=== PATIENT | female | born 1945 | race American Indian/Alaskan Native ===

== ENCOUNTER 2018-10-24 11:02 | Inpatient (IN) | payer MEDICARE, MEDICAID ==
[2018-10-24 11:03] VITALS: BMI 31.5
--- NOTE | 2018-10-24 11:19 | C.PDOC ---
History Of Present Illness Patient is a 73 year old female, with a PMHx of hypothyroidism, anemia, stent, 4 knee replacements, end stage renal disease (on dialysis) and 5 arthroscopic surgeries, who was biba for chest pain and syncopy that occurred at approxim ately 8 in the morning, as per her family. Family states that patient had HTN of 155 prior to EMS arrival, which then emely to 201. Patient has also been vomiting and chills. She reports chronic right sided weakness and lower back pain. Denies any urinary/bowel incontinence, fever, shortness of breath, diarrhea. No current chest pain, she notes taking her plavix today. Patient states compliance with her medications, which include Plavix. Allergies to Morphine, Oxycodone, Percocet. No other complaints. PCP is Dr. Artis and Craft Center Director is Dr. Dorman. Time Seen by Provider: 10/24/18 11:18 History Per: Patient, Family History/Exam Limitations: no limitations Onset/Duration Of Symptoms: Hrs Current Symptoms Are (Timing): Still Present Recent travel outside of the [place]: No Additional History Per: Patient, Family Past Medical History - Medical History PMH: Anemia (iron deficiency), CHF, Diabetes, Hiatal Hernia, HTN, Hypercholesterolemia, Peripheral Edema (ble +2), Chronic Kidney Disease, Chronic Pain (R leg) Comment Only: Hypothyroidism (thyroid surgery partial thyroidectomy) Surgical History: No Surg Hx - [facility] Procedures (09/17/17) DILATION OF 1 COR ART WITH DRUG-ELUT INTRA, PERC APPROACH (09/17/17) FLUOROSCOPY OF LEFT HEART USING OTHER CONTRAST (09/17/17) FLUOROSCOPY OF MULTIPLE CORONARY ARTERIES USING OTH CONTRAST (09/17/17) INJECT/INFUSE NEC (09/05/05) INSERTION OF INFUSION DEVICE INTO R ATRIUM, PERC APPROACH (09/17/17) INSERTION OF VAD INTO CHEST SUBCU/FASCIA, PERC APPROACH (09/17/17) MEASURE OF CARDIAC SAMPL & PRESSURE, L HEART, PERC APPROACH (09/17/17) Family History: States: Unknown Family Hx - Social History Hx Tobacco Use: No Hx Alcohol Use: No Hx Substance Use: No Review Of Systems Constitutional: Positive for: Chills. Negative for: Fever, Weakness Eyes: Negative for: Pain, Vision Change ENT: Negative for: Ear Pain, Ear Discharge, Nose Pain Cardiovascular: Positive for: Chest Pain, Edema (right sided pedal edema due to knee replacement surgeries ). Negative for: Palpitations, Orthopnea, Light Headedness Respiratory: Negative for: Cough, Shortness of Breath, SOB with Excertion Gastrointestinal: Negative for: Nausea, Vomiting, Abdominal Pain, Diarrhea, Constipation, Melena, Hematochezia, Hematemesis Genitourinary: Negative for: Dysuria, Frequency, Incontinence, Hematuria, Vaginal Discharge, Vaginal Bleeding Musculoskeletal: Positive for: Back Pain (chronic lower ) Neurological: Negative for: Weakness, Numbness, Change in Speech, Confusion, Seizures, Headache Physical Exam - Physical Exam Appears: Non-toxic, No Acute Distress Skin: Warm, Dry Head: Normacephalic Eye(s): bilateral: Normal Inspection, PERRL, EOMI Oral Mucosa: Moist Tongue: Normal Appearing (5/5 bilateral leg strength ), No Bite Neck: Trachea Midline, Supple, Other (No meningeal signs- negative kernig's and brudzinskis) Chest: Symmetrical Cardiovascular: Rhythm Regular, No Friction Rub Respiratory: Normal Breath Sounds, No Rales, No Rhonchi, No Wheezing Gastrointestinal/Abdominal: Soft, No Tenderness, No Distention Back: Normal Inspection, No CVA Tenderness, No Vertebral Tenderness, No Decreased ROM, No Muscle Spasm Extremity: Normal ROM, No Tenderness, No Pedal Edema, No Swelling Extremity: Bilateral: Normal Color And Temperature Pulses: Left Dorsalis Pedis: Normal, Right Dorsalis Pedis: Normal Neurological/Psych: Oriented x3, Normal Cognition, Normal Cranial Nerves, Normal Motor, Normal Sensation Gait: Steady ED Course And Treatment - Laboratory Results Result Diagrams: 10/24/18 12:22 10/24/18 12:22 ECG: Interpreted By Me, Viewed By Me ECG Rhythm: Sinus Rhythm Interpretation Of ECG: No-STEMI Rate From EC O2 Sat by Pulse Oximetry: 99 (on RA) Pulse Ox Interpretation: Normal - Other Rad CXR X-Ray: Read By Radiologist Interpretation: HISTORY: chills, cp. COMPARISON: Chest x-ray performed 07/10/14. TECHNIQUE: Chest PA and lateral. FINDINGS: Right IJ approach dialysis catheter with tips at the cavoatrial junction/right atrium. LUNGS: Soft tissue attenuation limits evaluation of the lateral left lower lobe; possib le left atelectasis/infiltrate. Correlate clinically. Please note that chest x-ray has limited sensitivity for the detection of pulmonary masses. PLEURA: No significant pleural effusion identified. No definite pneumothorax . CARDIOVASCULAR: Mild cardiomegaly. Atherosclerotic calcifications present. OSSEOUS STRUCTURES: Degenerative changes. VISUALIZED UPPER ABDOMEN: Unremarkable. OTHER FINDINGS: None. IMPRESSION: Right IJ approach dialysis catheter. Soft tissue attenuation limits evaluation of the lateral left lower lobe; possible left atelectasis/infiltrate. Correlate clinically. Cardiomegaly. - CT Scan/US Head Other Rad Studies (CT/US): Read By Radiologist, Radiology Report Reviewed CT/US Interpretation: Date of service: 10/24/2018. PROCEDURE: CT HEAD WITHOUT CONTRAST. HISTORY: syncope. COMPARISON: None available. TECHNIQUE: Axial computed tomography images were obtained through the head/brain without intravenous contrast. Radiation dose: Total exam DLP = 977.31 mGy-cm. This CT exam was performed using one or more of the following dose reduction techniques: Automated exposure control, adjustment of the mA and/or kV according to patient size, and/or use of iterative reconstruction technique. FINDINGS: HEMORRHAGE: No intracranial hemorrhage. BRAIN: No mass effect or edema. The sella appears empty. Mild scattered white matter hypodensities, which are nonspecific, but often seen with chronic microvascular ischemic disease. Please note that MRI with diffusion imaging is more sensitive in the detection of acute ischemic event. VENTRICLES: No hydrocephalus. CALVARIUM: Unremarkable. PARANASAL SINUSES: Unremarkable as visualized. No significant inflammatory changes. MASTOID AIR CELLS: Fluid opacification involving bilateral mastoid air cells. Correlate clinically for mastoiditis. OTHER FINDINGS: None. IMPRESSION: No acute intracranial pathology identified. Fluid/opacification bilateral mastoid air cells; correlate clinically for mastoiditis. Medical Decision Making Medical Decision Makin73 year old female w/ hx of HD T/THr/Sat p/w ams. Plan: * CAT Head * EKG * Bloodwork * CXR * Urinalysis * Flu Swab * Zofran 4 mg IVP Disposition - Disposition Disposition: HOSPITALIZED Disposition Time: 13:28 Condition: GOOD - Clinical Impression Clinical Impression: Pneumonia, Syncope, Chest pain - Scribe Statement The provider has reviewed the documentation as recorded by the Scribe Provider Attestation: Basia Alaniz All medical record entries made by the Scribe were at my direction and personally dictated by me. I have reviewed the chart and agree that the record accurately reflects my personal performance of the history, physical exam, medical decision making, and the department course for this patient. I have also personally directed, reviewed, and agree with the discharge instructions and disposition.
--- NOTE | 2018-10-24 12:14 | CT ---
Date of service: 10/24/2018 PROCEDURE: CT HEAD WITHOUT CONTRAST. HISTORY: syncope COMPARISON: None available. TECHNIQUE: Axial computed tomography images were obtained through the head/brain without intravenous contrast. Radiation dose: Total exam DLP = 977.31 mGy-cm. This CT exam was performed using one or more of the following dose reduction techniques: Automated exposure control, adjustment of the mA and/or kV according to patient size, and/or use of iterative reconstruction technique. FINDINGS: HEMORRHAGE: No intracranial hemorrhage. BRAIN: No mass effect or edema. The sella appears empty. Mild scattered white matter hypodensities, which are nonspecific, but often seen with chronic microvascular ischemic disease. Please note that MRI with diffusion imaging is more sensitive in the detection of acute ischemic event. VENTRICLES: No hydrocephalus. CALVARIUM: Unremarkable. PARANASAL SINUSES: Unremarkable as visualized. No significant inflammatory changes. MASTOID AIR CELLS: Fluid opacification involving bilateral mastoid air cells. Correlate clinically for mastoiditis. OTHER FINDINGS: None. IMPRESSION: No acute intracranial pathology identified. Fluid/opacification bilateral mastoid air cells; correlate clinically for mastoiditis.
--- NOTE | 2018-10-24 12:20 | RAD ---
HISTORY: chills, cp COMPARISON: Chest x-ray performed 07/10/14 TECHNIQUE: Chest PA and lateral FINDINGS: Right IJ approach dialysis catheter with tips at the cavoatrial junction/right atrium. LUNGS: Soft tissue attenuation limits evaluation of the lateral left lower lobe; possible left atelectasis/infiltrate. Correlate clinically. Please note that chest x-ray has limited sensitivity for the detection of pulmonary masses. PLEURA: No significant pleural effusion identified. No definite pneumothorax . CARDIOVASCULAR: Mild cardiomegaly. Atherosclerotic calcifications present. OSSEOUS STRUCTURES: Degenerative changes. VISUALIZED UPPER ABDOMEN: Unremarkable. OTHER FINDINGS: None. IMPRESSION: Right IJ approach dialysis catheter. Soft tissue attenuation limits evaluation of the lateral left lower lobe; possible left atelectasis/infiltrate. Correlate clinically. Cardiomegaly.
[2018-10-24] MEDS ORDERED: Labetalol 25mg/5ml Syringe IVP STA (12:22)
[2018-10-24] MEDS ORDERED: Piperacillin/Tazobact 3.375 GM in Sodium Chloride 100 ML IVPB STA (12:23)
[2018-10-24 12:28] LABS: BASO % 0.4 % (0.0-2.0); EOS % 0.3 % (0.0-4.0); LYMPH # 1.4 K/uL (1.0-4.3); LYMPH % 13.6 % (20.0-40.0); MEAN CELL VOLUME 95.7 fL (81.0-99.0); MEAN CORPUSCULAR HEMOGLOBIN 31.5 pg (27.0-31.0); MEAN CORPUSCULAR HGB CONC 32.9 g/dL (33.0-37.0); MEAN PLATELET VOLUME 8.4 fL (7.2-11.7); MONO # 0.2 K/uL (0.0-0.8); MONO % 2.1 % (0.0-10.0); NEUT # 8.7 K/uL (1.8-7.0); NEUT % 83.6 % (50.0-75.0); RBC 3.5 Mil/uL (3.80-5.20); WHITE BLOOD COUNT 10.4 K/uL (4.8-10.8)
[2018-10-24 12:38] LABS: VENOUS BLOOD GAS BASE EXCESS -1.5 mmol/L (0.0-2.0); VENOUS BLOOD GAS PCO2 44 mmHg (40-60); VENOUS BLOOD GAS PO2 29 mm/Hg (30-55); VENOUS BLOOD PH 7.35 (7.32-7.43)
[2018-10-24] MEDS ORDERED: Piperacillin/Tazobact 3.375 gm 100 ML IVPB ONE (12:38)
[2018-10-24] MEDS ORDERED: Labetalol 5mg/ml (4ml) ONE (12:38)
[2018-10-24 12:48] LABS: ALB/GLOB RATIO 1.3 (1.0-2.1); ALBUMIN 4.5 g/dL (3.5-5.0); ALT/SGPT 13 U/L (9-52); AST/SGOT 27 U/L (14-36); BLOOD UREA NITROGEN 87 mg/dL (7-17); CALCIUM 8.5 mg/dl (8.6-10.4)
[2018-10-24 12:58] LABS: B-TYPE NATRIURETIC PEPTIDE 859 pg/mL (0-900)
[2018-10-24 13:10] LABS: GFR NON-AFRICAN AMERICAN 4
[2018-10-24 13:44] LABS: SQUAMOUS EPITHIAL 4 /hpf (0-5); URINE BACTERIA RARE (<OCC); URINE BILIRUBIN NEGATIVE (NEGATIVE); URINE BLOOD NEGATIVE (NEGATIVE); URINE CLARITY Clear (Clear); URINE COLOR Amber (YELLOW); URINE GLUCOSE (UA) 1+ mg/dL (Normal); URINE LEUKOCYTE ESTERASE NEG Leu/uL (Negative); URINE PROTEIN 2+ mg/dL (NEGATIVE); URINE UROBILINOGEN NORMAL mg/dL (0.2-1.0)
--- NOTE | 2018-10-24 17:10 | CP.PCM.PN ---
Subjective - Date & Time of Evaluation Date of Evaluation: 10/24/18 Time of Evaluation: 16:30 - Subjective Subjective: H&P [facility] # [id number] Objective - Vital Signs/Intake and Output Vital Signs (last 24 hours): Temp Pulse Resp BP Pulse Ox 98 F 76 18 170/86 H 100 10/24/18 11:24 10/24/18 16:03 10/24/18 16:03 10/24/18 16:03 10/24/18 16:03 - Labs Labs: 10/24/18 12:22 10/24/18 12:22
--- NOTE | 2018-10-24 18:15 | CP.PCM.CON ---
History of Present Illness - History of Present Illness History of Present Illness: pt is seen and examined, full consult is dictated #[id number] seen in hd Past Patient History - Infectious Disease Hx of Infectious Diseases: None - Tetanus Immunizations Tetanus Immunization: Unknown - Past Medical History & Family History Past Medical History?: Yes - Past Social History Smoking Status: Never Smoked - CARDIAC Hx Congestive Heart Failure: Yes Hx Hypercholesterolemia: Yes Hx Hypertension: Yes Hx Peripheral Edema: Yes (ble +2) - PULMONARY Hx Respiratory Disorders: No - NEUROLOGICAL Hx Neurological Disorder: Yes - HEENT Hx HEENT Problems: No - RENAL Hx Chronic Kidney Disease: Yes - ENDOCRINE/METABOLIC Hx Hypothyroidism: (thyroid surgery partial thyroidectomy) - HEMATOLOGICAL/ONCOLOGICAL Hx Anemia: Yes (iron deficiency) - INTEGUMENTARY Hx Dermatological Problems: Yes Other/Comment: scar r knee - MUSCULOSKELETAL/RHEUMATOLOGICAL Hx Falls: No - GASTROINTESTINAL Hx Gastrointestinal Disorders: Yes (hiatal hernia) Hx Gastroesophageal Reflux: Yes - GENITOURINARY/GYNECOLOGICAL Hx Genitourinary Disorders: No - PSYCHIATRIC Hx Substance Use: No - SURGICAL HISTORY Hx Orthopedic Surgery: Yes (multiple knee surgeries,SPECIALLY RIGHT KNEE) Hx Thyroidectomy: Yes Other/Comment: pt fell "yrs ago" can't remember how long ago had 5 knee replacements and 5 arthoscopic sx's to r knee, r knee reconstruction with metal plate/cadavor part in nov 2014 and march 2015 - ANESTHESIA Hx Anesthesia Reactions: No Hx Malignant Hyperthermia: No Meds Allergies/Adverse Reactions: Allergies Allergy/AdvReac Type Severity Reaction Status Date / Time acetaminophen [From Percocet] Allergy RASH Verified 02/21/18 14:48 morphine Allergy VOMITING Verified 02/21/18 14:48 oxycodone HCl [From Percocet] Allergy RASH Verified 02/21/18 14:48 Results - Vital Signs Recent Vital Signs: Last Vital Signs Temp 97.8 F 10/24/18 17:10 Pulse 76 10/24/18 17:10 Resp 18 10/24/18 17:10 BP 170/94 H 10/24/18 17:40 Pulse Ox 100 10/24/18 17:10 - Labs Result Diagrams: 10/24/18 12:22 10/24/18 12:22 Labs: Laboratory Results - last 24 hr 10/24/18 10/24/18 10/24/18 11:14 12:22 12:22 WBC 10.4 RBC 3.50 L Hgb 11.0 Hct 33.5 L MCV 95.7 D MCH 31.5 H MCHC 32.9 L RDW 17.0 H Plt Count 274 MPV 8.4 Neut % (Auto) 83.6 H Lymph % (Auto) 13.6 L [place] % (Auto) 2.1 Eos % (Auto) 0.3 Baso % (Auto) 0.4 Neut # (Auto) 8.7 H Lymph # (Auto) 1.4 [place] # (Auto) 0.2 Eos # (Auto) 0.0 Baso # (Auto) 0.0 pO2 VBG pH VBG pCO2 VBG HCO3 VBG Total CO2 VBG O2 Sat (Calc) VBG Base Excess VBG Potassium Glucose Lactate Sodium 138 Potassium 4.9 Chloride 100 Carbon Dioxide 24 Anion Gap 19 BUN 87 H Creatinine 9.2 H* Est GFR ( Amer) 5 Est GFR (Non-Af Amer) 4 POC Glucose (mg/dL) 129 H Random Glucose 131 H D Calcium 8.5 L Total Bilirubin 1.0 AST 27 ALT 13 Alkaline Phosphatase 145 H Troponin I < 0.0120 NT-Pro-B Natriuret Pep 859 Total Protein 7.8 Albumin 4.5 Globulin 3.4 Albumin/Globulin Ratio 1.3 TSH 3rd Generation 8.96 H Venous Blood Potassium Urine Color Urine Clarity Urine pH Ur Specific Tyler Urine Protein Urine Glucose (UA) Urine Ketones Urine Blood Urine Nitrate Urine Bilirubin Urine Urobilinogen Ur Leukocyte Esterase Urine WBC (Auto) Urine RBC (Auto) Ur Squamous Epith Cells Urine Bacteria Influenza Typ A,B (EIA) 10/24/18 10/24/18 10/24/18 12:22 12:30 13:28 WBC RBC Hgb Hct MCV MCH MCHC RDW Plt Count MPV Neut % (Auto) Lymph % (Auto) [place] % (Auto) Eos % (Auto) Baso % (Auto) Neut # (Auto) Lymph # (Auto) [place] # (Auto) Eos # (Auto) Baso # (Auto) pO2 29 L VBG pH 7.35 VBG pCO2 44 VBG HCO3 22.5 VBG Total CO2 25.7 VBG O2 Sat (Calc) 55.4 VBG Base Excess -1.5 L VBG Potassium 4.6 Glucose 121 H Lactate 1.0 Sodium 140.0 Potassium Chloride 106.0 Carbon Dioxide Anion Gap BUN Creatinine Est GFR ( Amer) Est GFR (Non-Af Amer) POC Glucose (mg/dL) Random Glucose Calcium Total Bilirubin AST ALT Alkaline Phosphatase Troponin I NT-Pro-B Natriuret Pep Total Protein Albumin Globulin Albumin/Globulin Ratio TSH 3rd Generation Venous Blood Potassium 4.6 Urine Color Dolores Urine Clarity Clear Urine pH 7.0 Ur Specific Tyler 1.011 Urine Protein 2+ H Urine Glucose (UA) 1+ Urine Ketones Negative Urine Blood Negative Urine Nitrate Negative Urine Bilirubin Negative Urine Urobilinogen Normal Ur Leukocyte Esterase Neg Urine WBC (Auto) 1 Urine RBC (Auto) 4 H Ur Squamous Epith Cells 4 Urine Bacteria Rare Influenza Typ A,B (EIA) Negative for flu a/b
--- NOTE | 2018-10-24 19:19 | PN ---
DATE: 10/24/2018 SUBJECTIVE: I was called for a consult to evaluate the patient for uncontrolled hypertension in the emergency room. Upon my arrival, the patient stated that her gate shear operator, Dr. Dorman explained to the patient and family to convey that to the emergency room physician regarding the blood pressure control. It was discussed with Dr. Tee, the emergency room physician. I did request Dr. Dorman for cardiology consult as per the patient's request. Hugh Soni MD
--- NOTE | 2018-10-25 04:06 | HP ---
CHIEF COMPLAINT: The patient felt very dizzy and weak associated with nausea, vomiting and then episode of watery bowel movement and chest heaviness which happened this morning. HISTORY OF PRESENT ILLNESS: Ms. Shadi Peña is a 73-year-old female with past medical history of hypertension; diabetes mellitus; hyperlipidemia; CAD, status post stent placement; ESRD, on hemodialysis for past one year or so. Has been following up with Dr. Artis as a primary care physician and Dr. Siu as Nephrology and Dr. Almazan as Cardiology and Dr. Dorman as Cardiology. Her history also includes hypothyroidism. Came into the emergency room after the patient felt very weak, dizzy and had an episode of vomiting and loose bowel movement and chest heaviness which happened this morning. All the history was obtained from the patient and the patient's son at bedside. As per the patient, she was getting ready to go to the dialysis center this morning, she started feeling very dizzy, weak and felt nauseous, immediately she had an episode of vomiting and followed by an episode of loose watery bowel movement. She also felt heaviness in the chest at that time. All these symptoms lasted until she came into the emergency room, so she could not go to the hemodialysis center. When I examined, she is still feeling very weak and dizzy. Denies any headache. Denied any severe chest pain, but she claims that she felt heaviness in the chest. Denied any shortness of breath. Denied any abdominal pain, diarrhea. or constipation after that one episode. Denied any urinary complaints. Denied any leg pains or leg cramps. Denied any other neurologic symptoms. She claims she has chronic low back pain and multiple surgeries to her legs with which she always has chronic leg pain, then she has been having these worsening symptoms over the past few days. The patient denies eating any outside food or doing anything unusual than her routine. PAST MEDICAL HISTORY: As described, hypertension; hyperlipidemia; diabetes mellitus; coronary artery disease; status post stent placement; ESRD, on hemodialysis for over a year. PAST SURGICAL HISTORY: She underwent four right knee replacements, coronary stent placement in 2017, Perm-A-Cath placement, and multiple arthroscopic procedures to the left knee. FAMILY HISTORY: Coronary artery disease in her mother who at age 65. PERSONAL HISTORY: She lives alone. 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 Having five children. SOCIAL HISTORY: She denies smoking, alcohol or drug abuse. ALLERGIES: SHE IS ALLERGIC TO MORPHINE, OXYCODONE, ACETAMINOPHEN. MEDICATIONS: Her home medications include Coreg 25 mg b.i.d., Zocor 20 mg p.o. at bedtime, Plavix 75 mg daily, Synthroid 125 mcg daily, Imdur 30 mg daily. REVIEW OF SYSTEMS: As described in history of present illness. All other systems reviewed and were found to be negative. ASSESSMENT AND PLAN: Elderly female with history of hypertension, hyperlipidemia, hypothyroidism, coronary artery disease, status post stent placement, negative for diabetes mellitus, end-stage renal disease and on hemodialysis for about a year ago who has been following up with Dr. Artis as primary care physician, Dr. Siu as associate financial representative and Dr. Dorman as Cardiology. Came into the emergency room, brought in by [facility] after the patient had sudden onset of dizziness and weakness, chest heaviness associated with one episode of vomiting and loose bowel movement which happened this morning while she was getting ready to go to hemodialysis. In emergency department, the patient was found to be having questionable infiltrate on the chest x-ray and as the patient missed her hemodialysis, she is being admitted for further management. 1. Sudden onset of dizziness with chest pain in a patient with multiple risk factors, rule out acute coronary syndrome. 2. Possible gastroenteritis. 3. Generalized weakness. 4. End-stage renal disease with missed hemodialysis. 5. Hypertension. 6. Hyperlipidemia. 7. Hypothyroidism. 8. Coronary artery disease, status post stent placement. Awaiting for arteriovenous fistula placement and for cardiac clearance. PLAN: The patient is being admitted to the hospital telemetry. We will do serial cardiac enzymes and serial EKGs. We will check echocardiogram. We will check carotid Doppler. The patient will obtain cardiology evaluation with Dr. Dorman. The patient received one course of IV antibiotics. We will check CT scan of the chest to rule out any infiltrate. We will start the antibiotics pending on the CT result. The patient missed hemodialysis. We will request a renal consult for continuation of her hemodialysis. Her blood pressures are slightly running high. We will restart all her home medications and for possible this afternoon. I advised the patient to bring all her home medication list for continuation of her home medications. We will repeat labs in a.m. We will add further recommendation as her clinical course progresses. Daxa Styles MD [facility] # [id number]
[2018-10-25] MEDS: Levothyroxine 125 MCG TAB PO SCH (05:47)
--- NOTE | 2018-10-25 06:19 | CON ---
DATE: 10/24/2018 LOCATION: The patient is located in room 562, bed A. REQUESTED BY: Daxa Styles MD REASON FOR RENAL CONSULTATION: End-stage renal disease, continuation of hemodialysis. HISTORY OF PRESENT ILLNESS: Mrs. Shadi Peña is a 73-year-old elderly female with a past medical history significant for hypertension for more than 10 years, diabetes for about 11 years, end-stage renal disease, on hemodialysis since 09/2017, coronary artery disease, status post stent placement in 09/2017, multiple surgeries to the right knee joint, first one total knee replacement in 2002 and then in 2009, also reconstruction of the right patella in 2014, and also rods inside the right leg, status post Perm-A-Cath placement in 09/2017. The patient was admitted with chief complaints of feeling weak and dizziness since morning and unable to go to the dialysis and came to the emergency room for further evaluation. The patient denies any chest pain or palpitation. Denies any fever or cough. Denies any abdominal pain. Denies any nausea, vomiting, diarrhea. The patient claims she feels dizzy if the patient has ultrafiltration more than 2 liters in the dialysis center. The patient is being dialyzed. UF goal is about 2 liters. Denies any complaints during dialysis at this time. PAST MEDICAL HISTORY: Significant for hypertension for more than 10 years, diabetes for more than 10 years, coronary artery disease, status post coronary stent placement, ESRD, on hemodialysis three times a week, on Sunday, , Sunday at [facility], [facility] dialysis unit. PAST SURGICAL HISTORY: Right total knee replacement, multiple surgeries and also thyroid surgery long time ago. ALLERGIES: ALLERGIC TO ACETAMINOPHEN, MORPHINE, OXYCODONE. SOCIAL HISTORY: Denies any smoking, occasional social alcohol use. No drugs. PERSONAL HISTORY: Not and she has five children. FAMILY HISTORY: Both parents and her sister of end-stage renal disease. CURRENT MEDICATIONS: Include, in the hospital, Crestor 20 mg at bedtime, Plavix 75 mg daily, and levothyroxine 125 mcg p.o. daily. REVIEW OF SYSTEMS: Significant for weakness and dizziness. All other review of systems are reviewed and are negative. PHYSICAL EXAMINATION: VITAL SIGNS: As follows: Blood pressure 149/96, pulse 76, respirations 18, temperature 98, saturation 99%. Height 5 feet 5 inches, weight is 180 pounds. GENERAL: Mrs. Shadi Peña is a 73-year-old elderly female, moderately built, moderately nourished, not in acute distress. HEENT: Pupils normal, reactive to light and accommodation. Conjunctivae pink. Sclerae anicteric. Tongue is moist. Trachea is midline. LUNGS: Symmetric on both sides. Bilateral breath sounds present. Clear to auscultation. CARDIOVASCULAR SYSTEM: [place] at the fifth intercostal space, midclavicular line. S1 and S2 audible. No murmur or gallop. ABDOMEN: Normal in appearance. Soft, tympanitic. No guarding. No rigidity. No hepatosplenomegaly. CENTRAL NERVOUS SYSTEM: The patient is alert, awake, oriented x3. Nonfocal neuro examination. Cranial nerves II-XII grossly intact. Sensory and motor system is within normal limits. EXTREMITIES: No cyanosis, no clubbing, no edema. LABORATORY DATA: Include as follows: As of 10/24/2018, WBC 10.4, hemoglobin 11, hematocrit 33.5, platelets 274. ABG: pH 7.35, pCO2 of 44, pO2 of 29 and bicarb is 22.5, saturation 55.4. CMP: Sodium 138, potassium 4.9, chloride 100, CO2 of 24, BUN 87, creatinine 9.2, glucose 121, calcium 8.5. Total bilirubin 1.0, AST 27, ALT 13, alkaline phosphatase 145. Troponin 0.012. ProBNP 859, total protein 7.8, albumin is 4.5 and TSH 8.96. Urinalysis, col[place] color, clear, pH 7, specific gravity 1.011, protein 2+, glucose 1+, ketone negative, blood negative, nitrite negative, bilirubin negative, urobilinogen normal, leukocyte esterase negative, wbc 1, rbc 4. Influenza A and B antibodies negative. Other reports, chest x-ray as of 10/24/2018, impression, soft tissue attenuation limits evaluation of the lateral left lower lobe, possible left atelectasis or infiltrate, correlate clinically cardiomegaly, right internal jugular approach dialysis catheter. CT of the head as of 10/24/2018, no acute intracranial pathology identified, fluid opacification of bilateral mastoid air cells, correlate clinically for mastoiditis. ASSESSMENT: In summary, Mrs. Shadi Peña is a 73-year-old elderly female with a past medical history significant for longstanding hypertension, diabetes, coronary artery disease, status post coronary stent, also herniated disk, multiple surgeries on the right knee joint, status post total knee replacement in 2002, 2009, spacer placement, also status post reconstruction of the right patella in 2014, hemodialysis 3 times a week. The patient was admitted with weakness and dizziness x1 day and missed the hemodialysis. 1. End-stage renal disease. Continue hemodialysis Sunday, , Sunday. 2. Hypertension. Blood pressure is slightly high, continue her current medications and continue to add her current medications, clonidine, amlodipine and metoprolol and continue calcium acetate or PhosLo 1 tablet three times a day and Nephro-Ofelia 1 tablet daily and consider cardiology evaluation with Dr. Herrera, who knows the patient awaiting for the cardiology clearance for the arteriovenous fistula or arteriovenous graft placement. We will follow with you. Thank you for allowing me to participate in your patient's care. Farrah Styles MD
[2018-10-25 07:50] LABS: BASO % 0.5 % (0.0-2.0); EOS # 0.1 K/uL (0.0-0.7); EOS % 1.8 % (0.0-4.0); HEMOGLOBIN 9.8 g/dL (11.0-16.0); LYMPH # 2.1 K/uL (1.0-4.3); LYMPH % 30.2 % (20.0-40.0); MEAN CELL VOLUME 96.1 fL (81.0-99.0); MEAN CORPUSCULAR HEMOGLOBIN 32.3 pg (27.0-31.0); MEAN CORPUSCULAR HGB CONC 33.6 g/dL (33.0-37.0); MEAN PLATELET VOLUME 8.6 fL (7.2-11.7); MONO # 0.5 K/uL (0.0-0.8); MONO % 6.8 % (0.0-10.0); NEUT # 4.2 K/uL (1.8-7.0); NEUT % 60.7 % (50.0-75.0); RBC 3.05 Mil/uL (3.80-5.20); RED CELL DISTRIBUTION WIDTH 17.2 % (11.5-14.5); WHITE BLOOD COUNT 6.9 K/uL (4.8-10.8)
[2018-10-25 08:20] LABS: ALB/GLOB RATIO 1.4 (1.0-2.1); ALBUMIN 4.1 g/dL (3.5-5.0); CALCIUM 8.1 mg/dl (8.6-10.4)
--- NOTE | 2018-10-25 09:27 | CP.PCM.PN ---
Subjective - Date & Time of Evaluation Date of Evaluation: 10/25/18 Time of Evaluation: 09:27 - Subjective Subjective: Progress not dictated #[id number] Objective - Vital Signs/Intake and Output Vital Signs (last 24 hours): Temp Pulse Resp BP Pulse Ox 98.9 F 67 20 163/77 H 100 10/25/18 08:00 10/25/18 08:45 10/25/18 08:00 10/25/18 08:00 10/25/18 08:00 - Medications Medications: Current Medications Clopidogrel Bisulfate (Plavix) 75 mg PO DAILY [facility] Levothyroxine Sodium (Synthroid) 125 mcg PO 0600 [facility] Last Admin: 10/25/18 05:47 Dose: 125 mcg Rosuvastatin Calcium (Crestor) 10 mg PO HS [facility] - Labs Labs: 10/25/18 07:40 10/25/18 07:40
--- NOTE | 2018-10-25 10:38 | CP.PCM.CON ---
History of Present Illness - History of Present Illness History of Present Illness: The patient is a 73 year old woman, with a PMHx of hypothyroidism, anemia, coronary stent in 2017, 4 knee replacements, end stage renal disease (on dialysis) and 5 arthroscopic surgeries, who was getting ready to go to dialysis. Pt says that BP after dialysis is often 85 systolic, and she needs to eat salt and replace volume po. Pt says that she got up, had dressed, Am bp was 150 sysolic (she took it), and she was combing her hair, got dizzy, sat down, stood up, sat down, it did not pass. Patient has also been vomiting and chills, and had vague chest pressure. She called her daughter to help. She was confused, arrived in the ER did not know where she was at first, but gradually her mind cleared. She denies chest pain and syncope. . She reports chronic right sided weakness and lower back pain. Denies any urinary/bowel incontinence, fever, shortness of breath, diarrhea. Patient states compliance with her medications, which include Plavix. Allergies to Morphine, Oxycodone, Percocet. Pt still feels dizzy today. Review of Systems - Review of Systems All systems: reviewed and no additional remarkable complaints except (as above) Past Patient History - Infectious Disease Hx of Infectious Diseases: None - Tetanus Immunizations Tetanus Immunization: Unknown - Past Medical History & Family History Past Medical History?: Yes - Past Social History Smoking Status: Never Smoked - CARDIAC Hx Congestive Heart Failure: Yes Hx Hypercholesterolemia: Yes Hx Hypertension: Yes Hx Peripheral Edema: Yes (ble +2) - PULMONARY Hx Respiratory Disorders: No - NEUROLOGICAL Hx Neurological Disorder: Yes - HEENT Hx HEENT Problems: No - RENAL Hx Chronic Kidney Disease: Yes - ENDOCRINE/METABOLIC Hx Hypothyroidism: (thyroid surgery partial thyroidectomy) - HEMATOLOGICAL/ONCOLOGICAL Hx Anemia: Yes (iron deficiency) - INTEGUMENTARY Hx Dermatological Problems: Yes Other/Comment: scar r knee - MUSCULOSKELETAL/RHEUMATOLOGICAL Hx Falls: No - GASTROINTESTINAL Hx Gastrointestinal Disorders: Yes (hiatal hernia) Hx Gastroesophageal Reflux: Yes - GENITOURINARY/GYNECOLOGICAL Hx Genitourinary Disorders: No - PSYCHIATRIC Hx Substance Use: No - SURGICAL HISTORY Hx Orthopedic Surgery: Yes (multiple knee surgeries,SPECIALLY RIGHT KNEE) Hx Thyroidectomy: Yes Other/Comment: pt fell "yrs ago" can't remember how long ago had 5 knee replacements and 5 arthoscopic sx's to r knee, r knee reconstruction with metal plate/cadavor part in nov 2014 and march 2015 - ANESTHESIA Hx Anesthesia Reactions: No Hx Malignant Hyperthermia: No Meds Allergies/Adverse Reactions: Allergies Allergy/AdvReac Type Severity Reaction Status Date / Time acetaminophen [From Percocet] Allergy RASH Verified 02/21/18 14:48 morphine Allergy VOMITING Verified 02/21/18 14:48 oxycodone HCl [From Percocet] Allergy RASH Verified 02/21/18 14:48 - Medications Medications: Current Medications Clopidogrel Bisulfate (Plavix) 75 mg PO DAILY [facility] Levothyroxine Sodium (Synthroid) 125 mcg PO 0600 [facility] Last Admin: 10/25/18 05:47 Dose: 125 mcg Rosuvastatin Calcium (Crestor) 10 mg PO HS [facility] Physical Exam - Constitutional Appears: Well - Head Exam Head Exam: ATRAUMATIC - Eye Exam Eye Exam: EOMI Pupil Exam: NORMAL ACCOMODATION - ENT Exam ENT Exam: Mucous Membranes Moist - Neck Exam Neck exam: Positive for: Normal Inspection - Respiratory Exam Respiratory Exam: Clear to Auscultation Bilateral, NORMAL BREATHING PATTERN - Cardiovascular Exam Cardiovascular Exam: REGULAR RHYTHM - GI/Abdominal Exam GI & Abdominal Exam: Normal Bowel Sounds - Exam External exam: NORMAL EXTERNAL EXAM - Extremities Exam Extremities exam: Positive for: normal inspection - Back Exam Back exam: NORMAL INSPECTION - Neurological Exam Neurological exam: Alert, Normal Gait, Oriented x3, Reflexes Normal - Psychiatric Exam Psychiatric exam: Normal Affect, Normal Mood - Skin Skin Exam: Normal Color Results - Vital Signs Recent Vital Signs: Last Vital Signs Temp 98.9 F 10/25/18 08:00 Pulse 67 10/25/18 08:45 Resp 20 10/25/18 08:00 BP 163/77 H 10/25/18 08:00 Pulse Ox 100 10/25/18 08:00 - Labs Result Diagrams: 10/25/18 07:40 10/25/18 07:40 Labs: Laboratory Results - last 24 hr 10/24/18 10/24/18 10/24/18 11:14 12:22 12:22 WBC 10.4 RBC 3.50 L Hgb 11.0 Hct 33.5 L MCV 95.7 D MCH 31.5 H MCHC 32.9 L RDW 17.0 H Plt Count 274 MPV 8.4 Neut % (Auto) 83.6 H Lymph % (Auto) 13.6 L [place] % (Auto) 2.1 Eos % (Auto) 0.3 Baso % (Auto) 0.4 Neut # (Auto) 8.7 H Lymph # (Auto) 1.4 [place] # (Auto) 0.2 Eos # (Auto) 0.0 Baso # (Auto) 0.0 pO2 VBG pH VBG pCO2 VBG HCO3 VBG Total CO2 VBG O2 Sat (Calc) VBG Base Excess VBG Potassium Glucose Lactate Sodium 138 Potassium 4.9 Chloride 100 Carbon Dioxide 24 Anion Gap 19 BUN 87 H Creatinine 9.2 H* Est GFR ( Amer) 5 Est GFR (Non-Af Amer) 4 POC Glucose (mg/dL) 129 H Random Glucose 131 H D Hemoglobin A1c Calcium 8.5 L Phosphorus Magnesium Total Bilirubin 1.0 AST 27 ALT 13 Alkaline Phosphatase 145 H Troponin I < 0.0120 NT-Pro-B Natriuret Pep 859 Total Protein 7.8 Albumin 4.5 Globulin 3.4 Albumin/Globulin Ratio 1.3 Triglycerides Cholesterol LDL Cholesterol Direct HDL Cholesterol TSH 3rd Generation 8.96 H Venous Blood Potassium Urine Color Urine Clarity Urine pH Ur Specific [place] Urine Protein Urine Glucose (UA) Urine Ketones Urine Blood Urine Nitrate Urine Bilirubin Urine Urobilinogen Ur Leukocyte Esterase Urine WBC (Auto) Urine RBC (Auto) Ur Squamous Epith Cells Urine Bacteria Influenza Typ A,B (EIA) 10/24/18 10/24/18 10/24/18 12:22 12:30 13:28 WBC RBC Hgb Hct MCV MCH MCHC RDW Plt Count MPV Neut % (Auto) Lymph % (Auto) [place] % (Auto) Eos % (Auto) Baso % (Auto) Neut # (Auto) Lymph # (Auto) [place] # (Auto) Eos # (Auto) Baso # (Auto) pO2 29 L VBG pH 7.35 VBG pCO2 44 VBG HCO3 22.5 VBG Total CO2 25.7 VBG O2 Sat (Calc) 55.4 VBG Base Excess -1.5 L VBG Potassium 4.6 Glucose 121 H Lactate 1.0 Sodium 140.0 Potassium Chloride 106.0 Carbon Dioxide Anion Gap BUN Creatinine Est GFR ( Amer) Est GFR (Non-Af Amer) POC Glucose (mg/dL) Random Glucose Hemoglobin A1c Calcium Phosphorus Magnesium Total Bilirubin AST ALT Alkaline Phosphatase Troponin I NT-Pro-B Natriuret Pep Total Protein Albumin Globulin Albumin/Globulin Ratio Triglycerides Cholesterol LDL Cholesterol Direct HDL Cholesterol TSH 3rd Generation Venous Blood Potassium 4.6 Urine Color [place] Urine Clarity Clear Urine pH 7.0 Ur Specific [place] 1.011 Urine Protein 2+ H Urine Glucose (UA) 1+ Urine Ketones Negative Urine Blood Negative Urine Nitrate Negative Urine Bilirubin Negative Urine Urobilinogen Normal Ur Leukocyte Esterase Neg Urine WBC (Auto) 1 Urine RBC (Auto) 4 H Ur Squamous Epith Cells 4 Urine Bacteria Rare Influenza Typ A,B (EIA) Negative for flu a/b 10/24/18 10/25/18 10/25/18 19:08 01:28 06:18 WBC RBC Hgb Hct MCV MCH MCHC RDW Plt Count MPV Neut % (Auto) Lymph % (Auto) [place] % (Auto) Eos % (Auto) Baso % (Auto) Neut # (Auto) Lymph # (Auto) [place] # (Auto) Eos # (Auto) Baso # (Auto) pO2 VBG pH VBG pCO2 VBG HCO3 VBG Total CO2 VBG O2 Sat (Calc) VBG Base Excess VBG Potassium Glucose Lactate Sodium Potassium Chloride Carbon Dioxide Anion Gap BUN Creatinine Est GFR ( Amer) Est GFR (Non-Af Amer) POC Glucose (mg/dL) 104 111 H Random Glucose Hemoglobin A1c Calcium Phosphorus Magnesium Total Bilirubin AST ALT Alkaline Phosphatase Troponin I < 0.0120 NT-Pro-B Natriuret Pep Total Protein Albumin Globulin Albumin/Globulin Ratio Triglycerides Cholesterol LDL Cholesterol Direct HDL Cholesterol TSH 3rd Generation Venous Blood Potassium Urine Color Urine Clarity Urine pH Ur Specific [place] Urine Protein Urine Glucose (UA) Urine Ketones Urine Blood Urine Nitrate Urine Bilirubin Urine Urobilinogen Ur Leukocyte Esterase Urine WBC (Auto) Urine RBC (Auto) Ur Squamous Epith Cells Urine Bacteria Influenza Typ A,B (EIA) 10/25/18 10/25/18 10/25/18 07:40 07:40 07:40 WBC 6.9 RBC 3.05 L Hgb 9.8 L Hct 29.3 L MCV 96.1 MCH 32.3 H MCHC 33.6 RDW 17.2 H Plt Count 243 MPV 8.6 Neut % (Auto) 60.7 Lymph % (Auto) 30.2 [place] % (Auto) 6.8 Eos % (Auto) 1.8 Baso % (Auto) 0.5 Neut # (Auto) 4.2 Lymph # (Auto) 2.1 [place] # (Auto) 0.5 Eos # (Auto) 0.1 Baso # (Auto) 0.0 pO2 VBG pH VBG pCO2 VBG HCO3 VBG Total CO2 VBG O2 Sat (Calc) VBG Base Excess VBG Potassium Glucose Lactate Sodium 137 Potassium 4.2 Chloride 99 Carbon Dioxide 27 Anion Gap 16 BUN 46 H Creatinine 6.4 H Est GFR ( Amer) 8 Est GFR (Non-Af Amer) 6 POC Glucose (mg/dL) Random Glucose 110 H Hemoglobin A1c 5.5 Calcium 8.1 L Phosphorus 5.4 H Magnesium 2.1 Total Bilirubin 0.8 AST 24 ALT 15 Alkaline Phosphatase 120 Troponin I NT-Pro-B Natriuret Pep Total Protein 7.0 Albumin 4.1 Globulin 3.0 Albumin/Globulin Ratio 1.4 Triglycerides 116 Cholesterol 174 LDL Cholesterol Direct 99 HDL Cholesterol 36 TSH 3rd Generation 7.62 H Venous Blood Potassium Urine Color Urine Clarity Urine pH Ur Specific [place] Urine Protein Urine Glucose (UA) Urine Ketones Urine Blood Urine Nitrate Urine Bilirubin Urine Urobilinogen Ur Leukocyte Esterase Urine WBC (Auto) Urine RBC (Auto) Ur Squamous Epith Cells Urine Bacteria Influenza Typ A,B (EIA) - EKG Data EKG Interpreted by: Myself EKG shows normal: Sinus rhythm Rate: Normal (normal ecg) Assessment & Plan - Assessment and Plan (Free Text) Assessment: 1. Pt reports nausea, vomiting, confusion, vague chest discomfort, dizziness. Initial w/u revealed a normal ECG and normal tni. Second TNi pending. Echo has been ordered. So far, no evidence of acute coronary syndrome. Will order BP orthostatics, and review echo. Based on results, additional recommendations will be made. 2. BP is high: will order beta alessandro
[2018-10-25 10:53] LABS: CK-MB 0.76 ng/mL (0.0-3.38)
--- NOTE | 2018-10-25 12:39 | CT ---
Date of service: 10/25/2018 PROCEDURE: CT Chest without contrast HISTORY: r/o infiltrate COMPARISON: Not available TECHNIQUE: Contiguous axial images were obtained through the chest without intravenous contrast enhancement. Sagittal and coronal reconstructions were performed. Radiation dose (DLP): 787.79 mGy-cm. This CT exam was performed using one or more of the following dose reduction techniques: Automated exposure control, adjustment of the mA and/or kV according to patient size, and/or use of iterative reconstruction technique. FINDINGS: LUNGS: Minimal subsegmental atelectasis left lower lobe. No infiltrate. There is a 6 mm perifissural nodule along the minor fissure, likely an intrapulmonary lymph node. Follow-up noncontrast chest CT examination in 6-12 months. No other pulmonary mass is identified.. MEDIASTINUM: Unremarkable thoracic aorta. No aneurysm. Normal size heart. Minimal pericardial effusion. Small hiatal hernia. Right tunneled central venous dialysis catheter. Main pulmonary artery unremarkable. No vascular congestion. No lymphadenopathy. There is atherosclerotic calcification of the thoracic aorta. PLEURA: No pleural fluid. No pneumothorax. BONES: No fracture. No destructive lesion. UPPER ABDOMEN: Grossly unremarkable. OTHER FINDINGS: None. IMPRESSION: Small hiatal hernia. Incidental 6 mm perifissural nodule along the minor fissure. Recommend follow-up noncontrast chest CT in 6-12 months ago per no other acute abnormality.
--- NOTE | 2018-10-25 15:02 | VASCLAB ---
Date of service: 10/25/2018 PROCEDURE: Lower Extremity Venous Duplex Exam. HISTORY: Leg swelling PRIORS: None. TECHNIQUE: Bilateral common femoral, femoral, popliteal and posterior tibial, peroneal and great saphenous veins were evaluated. Flow was assessed with color Doppler, compressibility, assessment of phasic flow and augmentation response. Report prepared by Leonel Moreau, KIRK, RVT FINDINGS: RIGHT: 1. Common Femoral Vein: 1.1. Compressibility - Fully compressible: Thrombus - None : Flow - Phasic: Augmentation -Normal: Reflux - None. 2. Femoral Vein: 2.1. Compressibility - Fully compressible: Thrombus - None : Flow - Phasic: Augmentation -Normal: Reflux - None. 3. Popliteal Vein: 3.1. Compressibility - Fully compressible: Thrombus - None : Flow - Phasic: Augmentation -Normal: Reflux - None. 4. Posterior Tibial Vein: 4.1. Compressibility - Fully compressible: Thrombus - None: Flow - Phasic: Augmentation -Normal: Reflux - None. 5. Peroneal Vein: 5.1. Compressibility - Fully compressible: Thrombus - None: Flow - Phasic: Augmentation -Normal: Reflux - None. 6. Great Saphenous Vein: 6.1. Compressibility - Fully compressible: Thrombus - None: Flow - Phasic: Augmentation - Normal: Reflux - None. LEFT: 1. Common Femoral Vein: 1.1. Compressibility - Fully compressible: Thrombus - None: Flow - Phasic: Augmentation -Normal: Reflux - None. 2. Femoral Vein: 2.1. Compressibility - Fully compressible: Thrombus - None: Flow - Phasic: Augmentation -Normal: Reflux - None. 3. Popliteal Vein: 3.1. Compressibility - Fully compressible: Thrombus - None : Flow - Phasic: Augmentation -Normal: Reflux - None. 4. Posterior Tibial Vein: 4.1. Compressibility - Fully compressible: Thrombus - None: Flow - Phasic: Augmentation -Normal: Reflux - None. 5. Peroneal Vein: 5.1. Compressibility - Fully compressible: Thrombus - None: Flow - Phasic: Augmentation -Normal: Reflux - None. 6. Great Saphenous Vein: 6.1. Compressibility - Fully compressible: Thrombus - None: Flow - Phasic: Augmentation - Normal: Reflux - None. OTHER FINDINGS: Right: Technically limited on the right due to patient intolerance to compressions. Left: None significant. IMPRESSION: Right: No evidence of deep or superficial vein thrombosis of the right lower extremity. Normal valve function noted of the right side. Left: No evidence of deep or superficial vein thrombosis of the left lower extremity. Normal valve function noted of the left side.
--- NOTE | 2018-10-25 19:16 | CP.PCM.PN ---
Subjective - Date & Time of Evaluation Date of Evaluation: 10/25/18 Time of Evaluation: 19:15 - Subjective Subjective: pt is seen and examined, follow up consult is dictated #[id number] hd in am Objective - Vital Signs/Intake and Output Vital Signs (last 24 hours): Temp Pulse Resp BP Pulse Ox 98.9 F 61 20 177/104 H 100 10/25/18 08:00 10/25/18 16:18 10/25/18 08:00 10/25/18 11:50 10/25/18 08:00 - Medications Medications: Current Medications Clopidogrel Bisulfate (Plavix) 75 mg PO DAILY [facility] Last Admin: 10/25/18 11:51 Dose: 75 mg Levothyroxine Sodium (Synthroid) 125 mcg PO 0600 [facility] Last Admin: 10/25/18 05:47 Dose: 125 mcg Metoprolol Tartrate (Lopressor) 25 mg PO BID [facility] Last Admin: 10/25/18 11:50 Dose: 25 mg Rosuvastatin Calcium (Crestor) 10 mg PO [facility] - Labs Labs: 10/25/18 07:40 10/25/18 07:40
--- NOTE | 2018-10-26 00:05 | PN ---
DATE: 10/25/2018 SUBJECTIVE: The patient was seen and examined at bedside. The patient is still complaining of dizziness without any nausea or vomiting, without any neuro deficits. The patient claims that she takes dizziness medication meclizine intermittently. Now, the patient claims that yesterday, she, kind of, blanked out from the time she got into the ambulance and she did not know how she got here to the hospital, which was also stated to Dr. Dorman this morning. She could not recall what happened during that course of the time. This morning, denies any nausea or vomiting or any bowel movement. Denies any other neuro deficits. Other than dizziness, she has been feeling fairly normal. PHYSICAL EXAMINATION: GENERAL: Elderly female, lying in bed, in no acute distress. VITAL SIGNS: Blood pressure 174/86, not orthostatic; pulse 61; respirations 20; temperature 98.4 degrees Fahrenheit; O2 sat is 98% on room air. HEENT: Pupils equal, round, reacting to light and accommodation. Extraocular muscles intact. No icterus. No pallor. No oral thrush. No pharyngeal congestion. NECK: Supple. No JVD. LUNGS: Bilateral vesicular breath sounds. No wheezing. No rhonchi. CARDIOVASCULAR SYSTEM: S1, S2 present, regular. ABDOMEN: Soft, nontender. Bowel sounds present. No guarding, no rigidity, no rebound tenderness noted. CENTRAL NERVOUS SYSTEM: Alert, awake, and oriented x3. No focal deficits noted. EXTREMITIES: No edema. Palpable peripheral pulses. MEDICATIONS: Include Plavix 75 mg daily, Synthroid 125 mcg p.o. daily, meclizine 25 mg p.o. once, Lopressor 25 mg p.o. b.i.d., and Crestor 10 mg p.o. at bedtime. LABORATORY DATA: Labs from this morning: WBC 6.9, hemoglobin 9.8, hematocrit 29.3, platelets 243. Sodium 137, potassium 4.2, chloride 99, bicarbonate 27, BUN 46, creatinine 6.4, glucose 111, hemoglobin A1c 5.5, calcium 8.1, phosphorus 5.4, magnesium 2.1, total bilirubin 0.8, AST 24, ALT 15, alkaline phosphatase 120. Cardiac enzymes x2 negative. Total protein 7, albumin 4.1. Triglycerides 116, cholesterol 174, LDL 99, HDL 36. TSH 7.62. ASSESSMENT AND PLAN: An elderly female with history of hypertension, hyperlipidemia, coronary artery disease, status post stent placement, end-stage renal disease, on hemodialysis, admitted for dizziness, near syncope, generalized weakness, and chest pain. The patient now claims that she was not able to recall what happened from the time she got into the ambulance until she came into the emergency room, rule out syncope. The patient received hemodialysis yesterday. The patient is not orthostatic. We will continue with her current medications. We will start meclizine as needed. Check carotid Doppler. Echocardiogram results are pending. We will obtain neurology evaluation. We will continue with the deep venous thrombosis and gastrointestinal prophylaxis. Lower extremity Dopplers negative for deep venous thrombosis. Daxa Styles MD
--- NOTE | 2018-10-26 02:37 | PN ---
DATE: 10/25/2018 FOLLOWUP RENAL CONSULTATION LOCATION: The patient is located in room 562, bed A. REQUESTED BY: Daxa Styles MD REASON FOR FOLLOWUP: End-stage renal disease, continuation of hemodialysis. SUBJECTIVE: Mrs. Shdai Peña is a 73-year-old elderly female with a past medical history significant for longstanding hypertension, diabetes, nephrotic-range proteinuria, status post multiple surgeries for the right knee and metallic rods in the leg, coronary artery disease, status post stent placement about a year ago, end-stage renal disease, on hemodialysis since 09/2017 three times a week who was admitted with chief complaints of feeling dizzy, lightheaded, multiple vomiting and also passed out and also incontinence of bowel and also urine. As per the patient's family, the patient does not remember what happened until she was placed on the stretcher by the EMS. The patient is not in acute distress. Denies any chest pain or palpitation. Denies any fever or cough. Denies any abdominal pain, nausea, vomiting, or diarrhea. The patient was able to ambulate with the patient's family to the bathroom as per the patient today. Occasional dizziness. PHYSICAL EXAMINATION: VITAL SIGNS: As follows: Blood pressure 148/82, pulse 69, respirations about 20, and temperature 98.9. Height 5 feet 5 inches. Weight is 180 pounds. GENERAL: Mrs. Shadi Peña is a 73-year-old elderly female, moderately built, moderately nourished, not in distress. HEENT: Pupils are normal and reactive to light and accommodation. Conjunctivae pink. Sclerae anicteric. Tongue is moist and trachea is midline. LUNGS: Symmetric on both sides. Bilateral breath sounds present. Clear to auscultation. CARDIOVASCULAR SYSTEM: [place] at the fifth intercostal space, midclavicular line. S1 and S2 audible. No murmur or gallop. ABDOMEN: Normal in appearance, soft, tympanitic. No guarding. No rigidity. No hepatosplenomegaly. CENTRAL NERVOUS SYSTEM: The patient is alert, awake and oriented x3. Nonfocal neuro examination. Cranial nerves II through XII grossly intact. Sensory and motor system is within normal limits. EXTREMITIES: No cyanosis, no clubbing, no edema. The patient has a scar on the knee. CURRENT MEDICATIONS: Include as follows: Crestor 10 mg p.o. at bedtime, metoprolol 25 mg p.o. b.i.d., Plavix 75 mg p.o. daily, and Synthroid 125 mcg p.o. daily. LABORATORY DATA: As of 10/25/2018: WBC 6.9, hemoglobin 9.8, hematocrit is 29.3, platelets 243. Sodium 137, potassium 4.2, chloride 99, CO2 of 27, BUN 46, creatinine 6.4, glucose 110, hemoglobin A1c of 5.5, calcium 8.1, phosphorus 5.4, magnesium 2.1. Total bili 0.8, AST 24, ALT 15, alkaline phos of 120. CPK 88. Troponin 0.012 and 0.012. Total protein 7, albumin 4.1. Cholesterol 174, triglycerides 116, LDL 99, HDL 36. TSH 7.62. ASSESSMENT AND PLAN: In summary, Mrs. Shadi Peña is a 73-year-old elderly female with a history of hypertension, diabetes, status post thyroid surgery, hypothyroidism, hyperlipidemia, end-stage renal disease, coronary artery disease, status post stent placement, on hemodialysis since 09/2017 who was admitted with dizziness, nausea, vomiting, and incontinence of bowel and urine. 1. End-stage renal disease. Continue hemodialysis three times a week on Sunday, and Sunday. 2. Hypertension. Blood pressure is stable. Titrate medication metoprolol slowly as per the Cardiology. 3. Anemia secondary to renal failure. We will add Epogen during dialysis. 4. Hyperphosphatemia secondary to hyperparathyroidism, most likely. We will add Renvela 800 mg by mouth t.i.d. and also Nephrocaps one tablet by mouth daily. We will follow with you. Thank you for allowing me to participate in your patient's care. Farrah Styles MD
[2018-10-26] MEDS: Levothyroxine 125 MCG TAB PO SCH (06:08)
[2018-10-26 07:18] LABS: BASO % 0.4 % (0.0-2.0); EOS # 0.1 K/uL (0.0-0.7); EOS % 2.2 % (0.0-4.0); HEMOGLOBIN 9.9 g/dL (11.0-16.0); LYMPH # 2.3 K/uL (1.0-4.3); LYMPH % 35.5 % (20.0-40.0); MEAN CELL VOLUME 96.3 fL (81.0-99.0); MEAN CORPUSCULAR HEMOGLOBIN 32.3 pg (27.0-31.0); MEAN CORPUSCULAR HGB CONC 33.5 g/dL (33.0-37.0); MEAN PLATELET VOLUME 8.8 fL (7.2-11.7); MONO # 0.4 K/uL (0.0-0.8); MONO % 6.3 % (0.0-10.0); NEUT # 3.6 K/uL (1.8-7.0); NEUT % 55.6 % (50.0-75.0); RBC 3.08 Mil/uL (3.80-5.20); RED CELL DISTRIBUTION WIDTH 16.4 % (11.5-14.5); WHITE BLOOD COUNT 6.4 K/uL (4.8-10.8)
[2018-10-26 07:39] LABS: ALB/GLOB RATIO 1.3 (1.0-2.1); CALCIUM 8.3 mg/dl (8.6-10.4)
--- NOTE | 2018-10-26 10:53 | CP.PCM.PN ---
Subjective - Date & Time of Evaluation Date of Evaluation: 10/26/18 Time of Evaluation: 10:53 - Subjective Subjective: Progress note dictated # [id number] Objective - Vital Signs/Intake and Output Vital Signs (last 24 hours): Temp Pulse Resp BP Pulse Ox 97.9 F 60 20 149/83 97 10/26/18 07:58 10/26/18 07:58 10/26/18 07:58 10/26/18 07:58 10/25/18 23:38 Intake and Output: 10/26/18 10/26/18 06:59 18:59 Intake Total 320 Balance 320 - Medications Medications: Current Medications Clopidogrel Bisulfate (Plavix) 75 mg PO DAILY [facility] Last Admin: 10/26/18 10:36 Dose: 75 mg Levothyroxine Sodium (Synthroid) 125 mcg PO 0600 [facility] Last Admin: 10/26/18 06:08 Dose: 125 mcg Metoprolol Tartrate (Lopressor) 25 mg PO BID [facility] Last Admin: 10/26/18 10:36 Dose: Not Given Rosuvastatin Calcium (Crestor) 10 mg PO HS [facility] Last Admin: 10/25/18 21:34 Dose: 10 mg - Labs Labs: 10/26/18 07:02 10/26/18 07:02
--- NOTE | 2018-10-26 13:53 | CP.PCM.PN ---
Subjective - Date & Time of Evaluation Date of Evaluation: 10/26/18 Time of Evaluation: 13:52 - Subjective Subjective: pt is seen and examined,follow up consult is dictated #[id number] for hd today Objective - Vital Signs/Intake and Output Vital Signs (last 24 hours): Temp Pulse Resp BP Pulse Ox 97.9 F 60 20 149/83 97 10/26/18 07:58 10/26/18 07:58 10/26/18 07:58 10/26/18 07:58 10/25/18 23:38 Intake and Output: 10/26/18 10/26/18 06:59 18:59 Intake Total 320 Balance 320 - Medications Medications: Current Medications Clopidogrel Bisulfate (Plavix) 75 mg PO DAILY [facility] Last Admin: 10/26/18 10:36 Dose: 75 mg Levothyroxine Sodium (Synthroid) 125 mcg PO 0600 [facility] Last Admin: 10/26/18 06:08 Dose: 125 mcg Metoprolol Tartrate (Lopressor) 25 mg PO BID [facility] Last Admin: 10/26/18 10:36 Dose: Not Given Rosuvastatin Calcium (Crestor) 10 mg PO [facility] Last Admin: 10/25/18 21:34 Dose: 10 mg - Labs Labs: 10/26/18 07:02 10/26/18 07:02
--- NOTE | 2018-10-26 15:33 | CARD ---
APPROVED REPORT Date of service: 10/25/2018 EXAM: Two-dimensional and M-mode echocardiogram with Doppler and color Doppler. Other Information Quality : GoodRhythm : INDICATION Abnormal EKG/Arrhythmia Peripheral Edema Pleural Effusion Chest Pain RISK FACTORS Hypertension Diabetes 2D DIMENSIONS IVSd1.0 (0.7-1.1cm)LVDd5.2 (3.9-5.9cm) PWd1.1 (0.7-1.1cm)LA Llgpjl51 (18-58mL) LVDs2.2 (2.5-4.0cm)FS (%) 56.8 % LVEF (%)86.8 (>50%)LVEF (Mccray's)80 % IVC0.00 cm M-Mode DIMENSIONS RVDd1.82 (2.1-3.2cm)Left Atrium (MM)4.67 (2.5-4.0cm) IVSd1.00 (0.7-1.1cm)Aortic Root3.13 (2.2-3.7cm) LVDd5.51 (4.0-5.6cm)Aortic Cusp Exc.2.11 (1.5-2.0cm) PWd1.39 (0.7-1.1cm)FS (%) 56 % LVDs2.43 (2.0-3.8cm)LVEF (%)86 (>50%) Mitral Valve MV E Jfqkjtxy34.2cm/sMV A Ejdbrsyq178.5cm/sE/A ratio0.9 TDI Lateral E' Peak V6.16cm/sMedial E' Peak V3.58cm/sE/Lateral E'15.0 E/Medial E'25.8 Tricuspid Valve TR Peak Sddtuoyk018aj/sTR Peak Gr.15jsAlARAR67peCt LEFT VENTRICLE The left ventricle is normal size. There is normal left ventricular wall thickness. The left ventricular function is normal. The left ventricular ejection fraction is within the normal range. No regional wall motion abnormalities noted. Indeterminate No left ventricle thrombus noted on this study. There is no ventricular septal defect visualized. There is no left ventricular aneurysm. There is no mass noted in the left ventricle. RIGHT VENTRICLE The right ventricle is normal size. There is normal right ventricular wall thickness. The right ventricular systolic function is normal. ATRIA The left atrium is mildly dilated. The right atrium size is normal. The interatrial septum is intact with no evidence for an atrial septal defect. AORTIC VALVE The aortic valve is normal in structure and function. No aortic regurgitation is present. There is no aortic valvular stenosis. There is no aortic valvular vegetation. MITRAL VALVE The mitral valve is normal in structure and function. There is no evidence of mitral valve prolapse. There is no mitral valve stenosis. There is no mitral valve regurgitation noted. TRICUSPID VALVE The tricuspid valve is normal in structure and function. There is mild tricuspid regurgitation. Right ventricular systolic pressure is estimated at less than 30 mmHg. There is no tricuspid valve prolapse or vegetation. There is no tricuspid valve stenosis. PULMONIC VALVE The pulmonary valve is normal in structure and function. There is no pulmonic valvular regurgitation. There is no pulmonic valvular stenosis. GREAT VESSELS The aortic root is normal in size. The ascending aorta is normal in size. The pulmonary artery is normal. The IVC is normal in size and collapses >50% with inspiration. PERICARDIAL EFFUSION The pericardium appears normal. There is no pleural effusion. <Conclusion> The left ventricular function is normal. The left ventricular ejection fraction is within the normal range. No regional wall motion abnormalities noted. The left atrium is mildly dilated.
--- NOTE | 2018-10-27 00:22 | PN ---
DATE: 10/26/2018 SUBJECTIVE: The patient was seen and examined at bedside. The patient is feeling better today, less dizziness. Denies any other new complaints. PHYSICAL EXAMINATION GENERAL: Elderly female, lying in bed, in no acute distress. VITAL SIGNS: Blood pressure 146/84, pulse 67, respirations 20, temperature 97.9 degrees Fahrenheit, O2 sat 93% on room air. HEENT: Pupils are equal, round and reacting to light and accommodation. Extraocular muscles intact. No icterus. No pallor. No oral thrush. No pharyngeal congestion. NECK: Supple. No JVD. LUNGS: Bilateral vesicular breath sounds. No wheezing. No rhonchi. CARDIOVASCULAR SYSTEM: S1 and S2 present, regular. ABDOMEN: Soft, nontender. Bowel sounds present. No guarding. No rigidity. No rebound tenderness noted. CENTRAL NERVOUS SYSTEM: Alert, awake, oriented x3. No focal deficits noted. EXTREMITIES: No edema. Palpable peripheral pulses. MEDICATIONS: Include Plavix 75 mg daily, Synthroid 125 mcg daily, metoprolol 25 mg p.o. b.i.d., Crestor 10 mg p.o. at bedtime. LABORATORY DATA: Labs from this morning: WBC 6.4, hemoglobin 9.9, hematocrit 29.7, platelets 227. Sodium 138, potassium 4.5, chloride 98, bicarb 27, BUN 59, creatinine 7.9, glucose 104. Calcium 8.3, total bilirubin 0.6, AST 21, ALT 17, alkaline phosphatase 119, total protein 7.1, albumin 4. Echocardiogram consistent with left ventricular function normal, EF is within normal range. No regional wall motion abnormalities. Left atrium is mildly dilated. ASSESSMENT AND PLAN: Elderly female with a history of hypertension; hypothyroidism; hyperlipidemia; diabetes mellitus; coronary artery disease, status post stent placement; end-stage renal disease, on hemodialysis; admitted for dizziness, questionable near-syncope versus syncope, generalized weakness and vertigo history. The patient received one dose of meclizine yesterday. The patient's symptoms are slightly better than yesterday for hemodialysis today. Continue with other current medications. We will follow up with Cardiology. If Cardiology clears the patient and seen by Neurology, we will plan discharging the patient home. Daxa Styles MD [facility] # [id number]
[2018-10-27] MEDS: Levothyroxine 125 MCG TAB PO SCH (05:38)
[2018-10-27 08:43] LABS: BASO % 0.3 % (0.0-2.0); EOS # 0.2 K/uL (0.0-0.7); EOS % 2.1 % (0.0-4.0); HEMOGLOBIN 10.5 g/dL (11.0-16.0); LYMPH # 2.5 K/uL (1.0-4.3); LYMPH % 33.9 % (20.0-40.0); MEAN CELL VOLUME 95.8 fL (81.0-99.0); MEAN CORPUSCULAR HEMOGLOBIN 32.8 pg (27.0-31.0); MEAN CORPUSCULAR HGB CONC 34.3 g/dL (33.0-37.0); MEAN PLATELET VOLUME 8.9 fL (7.2-11.7); MONO # 0.5 K/uL (0.0-0.8); MONO % 6.2 % (0.0-10.0); NEUT # 4.2 K/uL (1.8-7.0); NEUT % 57.5 % (50.0-75.0); RBC 3.19 Mil/uL (3.80-5.20); RED CELL DISTRIBUTION WIDTH 16.1 % (11.5-14.5); WHITE BLOOD COUNT 7.3 K/uL (4.8-10.8)
[2018-10-27 09:05] LABS: ALB/GLOB RATIO 1.3 (1.0-2.1); ALBUMIN 4.3 g/dL (3.5-5.0); CALCIUM 8.5 mg/dl (8.6-10.4)
[2018-10-27] MEDS: Multivitamin Vitamin B Complex (Nephro-Vite) Tab PO SCH (09:10)
--- NOTE | 2018-10-27 11:37 | CP.PCM.PN ---
Subjective - Date & Time of Evaluation Date of Evaluation: 10/27/18 Time of Evaluation: 11:37 - Subjective Subjective: Progress note dictated #[id number] Objective - Vital Signs/Intake and Output Vital Signs (last 24 hours): Temp Pulse Resp BP Pulse Ox 98.2 F 63 20 165/81 H 99 10/27/18 07:00 10/27/18 07:25 10/27/18 07:00 10/27/18 09:14 10/27/18 07:00 - Medications Medications: Current Medications Clopidogrel Bisulfate (Plavix) 75 mg PO DAILY [facility] Last Admin: 10/27/18 09:14 Dose: 75 mg Heparin Sodium (Porcine) (Heparin) 4,600 units IVP TTS [facility] Stop: 11/01/18 23:59 Last Admin: 10/26/18 20:23 Dose: 4,600 units Levothyroxine Sodium (Synthroid) 125 mcg PO 0600 [facility] Last Admin: 10/27/18 05:38 Dose: 125 mcg Meclizine HCl (Antivert) 12.5 mg PO Q8 PRN PRN Reason: Dizziness Metoprolol Tartrate (Lopressor) 25 mg PO BID [facility] Last Admin: 10/27/18 09:14 Dose: 25 mg Rosuvastatin Calcium (Crestor) 10 mg PO HS [facility] Last Admin: 10/26/18 21:55 Dose: 10 mg Sevelamer Carbonate (Renvela) 800 mg PO TIDCC [facility] Last Admin: 10/27/18 09:10 Dose: 800 mg Vitamin B Complex/Vit C/Folic Acid (Nephro-Ofelia) 1 tab PO 0800 [facility] Last Admin: 10/27/18 09:10 Dose: 1 tab - Labs Labs: 10/27/18 08:17 10/27/18 08:17
--- NOTE | 2018-10-27 13:14 | CARD ---
APPROVED REPORT Date of service: 10/24/2018 EKG Measurement Heart [id number] <Conclusion> Normal sinus rhythm Low voltage QRS Cannot rule out Anterior infarct, age undetermined Abnormal ECG
--- NOTE | 2018-10-27 13:52 | CP.PCM.PN ---
Subjective - Date & Time of Evaluation Date of Evaluation: 10/27/18 Time of Evaluation: 12:00 - Subjective Subjective: Seen and examined Still complains of dizziness, even when sitting/lying down Objective - Vital Signs/Intake and Output Vital Signs (last 24 hours): Temp Pulse Resp BP Pulse Ox 98.2 F 64 20 165/81 H 99 10/27/18 07:00 10/27/18 08:52 10/27/18 07:00 10/27/18 09:14 10/27/18 07:00 - Medications Medications: Current Medications Clopidogrel Bisulfate (Plavix) 75 mg PO DAILY [facility] Last Admin: 10/27/18 09:14 Dose: 75 mg Heparin Sodium (Porcine) (Heparin) 4,600 units IVP TTS [facility] Stop: 11/01/18 23:59 Last Admin: 10/26/18 20:23 Dose: 4,600 units Levothyroxine Sodium (Synthroid) 125 mcg PO 0600 [facility] Last Admin: 10/27/18 05:38 Dose: 125 mcg Meclizine HCl (Antivert) 12.5 mg PO Q8 PRN PRN Reason: Dizziness Last Admin: 10/27/18 11:38 Dose: 12.5 mg Metoprolol Tartrate (Lopressor) 25 mg PO BID [facility] Last Admin: 10/27/18 09:14 Dose: 25 mg Rosuvastatin Calcium (Crestor) 10 mg PO HS [facility] Last Admin: 10/26/18 21:55 Dose: 10 mg Sevelamer Carbonate (Renvela) 800 mg PO TIDCC [facility] Last Admin: 10/27/18 12:55 Dose: 800 mg Vitamin B Complex/Vit C/Folic Acid (Nephro-Ofelia) 1 tab PO 0800 [facility] Last Admin: 10/27/18 09:10 Dose: 1 tab - Labs Labs: 10/27/18 08:17 10/27/18 08:17 - Constitutional Appears: Well - Head Exam Head Exam: NORMAL INSPECTION, NORMOCEPHALIC - Respiratory Exam Respiratory Exam: Clear to Ausculation Bilateral - Cardiovascular Exam Cardiovascular Exam: REGULAR RHYTHM, +S1, +S2. absent: JVD - GI/Abdominal Exam GI & Abdominal Exam: Soft. absent: Tenderness - Extremities Exam Extremities Exam: absent: Pedal Edema - Neurological Exam Neurological Exam: Alert, Awake, CN II-XII Intact - Skin Skin Exam: Dry, Intact Assessment and Plan (1) Syncope Assessment & Plan: Syncope, unclear etiology Orthostatics negative Preserved LV function on echo Current symptoms are more suggestive of vertigo, improved with meclizine Tilt table test may be considered as outpatient Status: Acute (2) Atherosclerotic heart disease of [place] coronary artery without angina pectoris Assessment & Plan: Stable CAD Cont with cardiac meds Patient will need outpatient pharmacologic nuclear stress test prior to AV fistula placement Status: Acute
--- NOTE | 2018-10-27 16:22 | CP.PCM.PN ---
Subjective - Date & Time of Evaluation Date of Evaluation: 10/27/18 Time of Evaluation: 16:22 - Subjective Subjective: pt isseen and examined, follow up consult is dictated #[id number] Objective - Vital Signs/Intake and Output Vital Signs (last 24 hours): Temp Pulse Resp BP Pulse Ox 97.9 F 64 20 107/67 98 10/27/18 15:30 10/27/18 15:30 10/27/18 15:30 10/27/18 15:30 10/27/18 15:30 - Medications Medications: Current Medications Clopidogrel Bisulfate (Plavix) 75 mg PO DAILY [facility] Last Admin: 10/27/18 09:14 Dose: 75 mg Heparin Sodium (Porcine) (Heparin) 4,600 units IVP TTS [facility] Stop: 11/01/18 23:59 Last Admin: 10/26/18 20:23 Dose: 4,600 units Levothyroxine Sodium (Synthroid) 125 mcg PO 0600 [facility] Last Admin: 10/27/18 05:38 Dose: 125 mcg Meclizine HCl (Antivert) 12.5 mg PO Q8 PRN PRN Reason: Dizziness Last Admin: 10/27/18 11:38 Dose: 12.5 mg Metoprolol Tartrate (Lopressor) 25 mg PO BID [facility] Last Admin: 10/27/18 09:14 Dose: 25 mg Rosuvastatin Calcium (Crestor) 10 mg PO HS [facility] Last Admin: 10/26/18 21:55 Dose: 10 mg Sevelamer Carbonate (Renvela) 800 mg PO TIDCC [facility] Last Admin: 10/27/18 12:55 Dose: 800 mg Vitamin B Complex/Vit C/Folic Acid (Nephro-Ofelia) 1 tab PO 0800 [facility] Last Admin: 10/27/18 09:10 Dose: 1 tab - Labs Labs: 10/27/18 08:17 10/27/18 08:17
--- NOTE | 2018-10-27 22:23 | PN ---
DATE: 10/27/2018 SUBJECTIVE: The patient was seen and examined at bedside. The patient complained of minimal dizziness this morning and it improved with meclizine. The patient denies any other new complaints. PHYSICAL EXAMINATION GENERAL: Elderly female, lying in bed, in no acute distress. VITAL SIGNS: Blood pressure 107/67, pulse 64, respirations 20, temperature 97.9 degrees Fahrenheit, O2 saturations 98% on 2 L nasal cannula. HEENT: Pupils are equal, round, and reacting to light and accommodation. Extraocular muscles intact. No icterus. No pallor. No oral thrush. No pharyngeal congestion. NECK: Supple. No JVD. LUNGS: Bilateral vesicular breath sounds. No wheezing. No rhonchi. CVS: S1, S2 present, regular. ABDOMEN: Soft, nontender. Bowel sounds present. No guarding. No rigidity. No rebound tenderness noted. 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 No focal deficits noted. EXTREMITIES: No edema. Palpable peripheral pulses. MEDICATIONS: Include: Plavix 75 mg daily, subcu heparin for DVT prophylaxis, Synthroid 125 mcg p.o. daily, meclizine 12.5 mg p.o. every 8 hours p.r.n., Lopressor 25 mg p.o. b.i.d., Crestor 10 mg p.o. at bedtime, Renvela 800 mg p.o. t.i.d., and Nephro-Ofelia. LABORATORY DATA: Labs from this morning: WBC 7.3, hemoglobin 10.5, hematocrit 30.6, and platelets 232. Sodium 137, potassium 4.4, chloride 97, bicarb 29, BUN 41, creatinine 6.9, glucose 150, and calcium 8.5. Alkaline phosphatase 129. Other LFTs with normal limits. ASSESSMENT AND PLAN: Elderly female with history of hyperlipidemia; hypertension; hypothyroidism; coronary artery disease, status post stent placement; end-stage renal disease, on hemodialysis, admitted for syncope, status post generalized weakness and persistent dizziness, possible benign paroxysmal positional vertigo, improved with meclizine this morning, but returned after a while. We will continue with current medication. Discussed with Cardiology. Recommending stress test and possible tilt-table test as outpatient. Waiting for Neurology evaluation. If cleared by Cardiology and Neurology, we will plan discharging the patient home. The patient received hemodialysis yesterday, for repeat hemodialysis on Sunday. We will follow up with social economist for discharge planning. Daxa Styles MD
--- NOTE | 2018-10-28 01:29 | PN ---
DATE: 10/27/2018 The patient is located in room 562, bed A. Requested by Dr. Daxa Styles. REASON FOR FOLLOWUP: End-stage renal disease, for continuation of hemodialysis, dizziness. SUBJECTIVE: Mrs. Shadi Peña is a 73-year-old elderly obese female with a history of longstanding diabetes, hypertension, hyperlipidemia, coronary artery disease, status post stent placement, end-stage renal disease, on hemodialysis since 09/2017, multiple surgeries to the right knee, was admitted with chief complaints of nausea, vomiting and dizziness and questionable pass-out. The patient is still complaining of dizziness on and off. Denies any chest pain or palpitation. Denies any fever or cough. Denies any abdominal pain. Denies any nausea, vomiting, diarrhea. PHYSICAL EXAMINATION: GENERAL: Mrs. Shadi Peña is a 73-year-old elderly female, moderately built, moderate nourished, not in distress. VITAL SIGNS: Her vital signs as follows: Blood pressure this afternoon 163/81, pulse 61, respirations about 20, temperature 97.9 and at 03:30 p.m., blood pressure of 107/67 and repeat blood pressure at 06:00 or 07:00 p.m., 161/78, pulse 65, height 5 feet 5 inches, weight is 202 pounds. HEENT: Pupils normal, reactive to light and accommodation. Conjunctivae pink. Sclerae anicteric. Tongue is moist. Trachea is midline. LUNGS: Symmetric on both sides. Bilateral breath sounds present. CVS: [place] at the fifth intercostal space, midclavicular line. S1, S2 heard. No murmur or gallop. ABDOMEN: Normal in appearance, soft, tympanitic. No guarding, no rigidity. No hepatosplenomegaly. M[employer] AUTHOR: The patient is alert, awake, oriented x3. Nonfocal neuro examination. Cranial nerves II-XII grossly intact. Sensory and motor system is within normal limits. EXTREMITIES: No cyanosis, no clubbing, and no edema. LABORATORY DATA: Include as follows: As of 10/27/2018, WBC 7.3, hemoglobin 10, hematocrit is 30.6, platelets 232. Sodium 137, potassium 4.4, chloride 97, CO2 is 29, BUN 41, creatinine 6.1, glucose 107, calcium 8.5. Total bili 0.7, AST 27, ALT 16, alkaline phosphatase 129, total protein 7.6, albumin is 4.3. Accu-Cheks, 150 and 106. Carotid Doppler study report is pending and echocardiogram report, left ventricular function is normal. Left ventricular ejection fraction is within normal range. No regional wall motion abnormality noted. Left atrium is mildly dilated. ASSESSMENT AND PLAN: In summary, Mrs. Shadi Peña is a 73-year-old elderly -[place] female, moderately built, moderately nourished with hypertension, diabetes, hyperlipidemia, coronary artery disease, status post coronary stent placement, end-stage renal disease, on hemodialysis three times a week Sunday, , Sunday, and was admitted with nausea, vomiting and questionable syncopal episode. 1. End-stage renal disease. Continue hemodialysis three times a week Sunday, , and Sunday. 2. Hypertension. Blood pressure is stable. Continue her current medications, metoprolol 25 mg p.o. b.i.d. 3. Hypothyroidism. Continue Synthroid 125 mcg p.o. daily and continue Renvela, Plavix, and Crestor and meclizine for dizziness p.r.n. Follow up with Cardiology for further management. Thank you for allowing me to participate in your patient's care. Farrah Styles MD
[2018-10-28] MEDS: Levothyroxine 125 MCG TAB PO SCH (05:20)
--- NOTE | 2018-10-28 07:27 | CP.PCM.CON ---
History of Present Illness - History of Present Illness History of Present Illness: HYPO PERFUSION SYNDROME HYDRATION AND KEEP MAP AROUND 100 CONTINUE HD EE R/O SEIZURES MRI ON HOLD - RT KNEE METAL PLACEMENT PT Past Patient History - Infectious Disease Hx of Infectious Diseases: None - Tetanus Immunizations Tetanus Immunization: Unknown - Past Medical History & Family History Past Medical History?: Yes - Past Social History Smoking Status: Never Smoked - CARDIAC Hx Congestive Heart Failure: Yes Hx Hypercholesterolemia: Yes Hx Hypertension: Yes - PULMONARY Hx Respiratory Disorders: No - NEUROLOGICAL Hx Neurological Disorder: Yes - HEENT Hx HEENT Problems: No - RENAL Hx Chronic Kidney Disease: Yes - ENDOCRINE/METABOLIC Hx Hypothyroidism: (thyroid surgery partial thyroidectomy) - HEMATOLOGICAL/ONCOLOGICAL Hx Anemia: Yes (iron deficiency) - INTEGUMENTARY Hx Dermatological Problems: Yes Other/Comment: scar r knee - MUSCULOSKELETAL/RHEUMATOLOGICAL Hx Falls: No - GASTROINTESTINAL Hx Gastrointestinal Disorders: Yes (hiatal hernia) Hx Gastroesophageal Reflux: Yes - GENITOURINARY/GYNECOLOGICAL Hx Genitourinary Disorders: No - PSYCHIATRIC Hx Substance Use: No - SURGICAL HISTORY Hx Orthopedic Surgery: Yes (multiple knee surgeries,SPECIALLY RIGHT KNEE) Hx Thyroidectomy: Yes Other/Comment: pt fell "yrs ago" can't remember how long ago had 5 knee replacements and 5 arthoscopic sx's to r knee, r knee reconstruction with metal plate/cadavor part in nov 2014 and march 2015 - ANESTHESIA Hx Anesthesia Reactions: No Hx Malignant Hyperthermia: No Meds Allergies/Adverse Reactions: Allergies Allergy/AdvReac Type Severity Reaction Status Date / Time acetaminophen [From Percocet] Allergy RASH Verified 02/21/18 14:48 morphine Allergy VOMITING Verified 02/21/18 14:48 oxycodone HCl [From Percocet] Allergy RASH Verified 02/21/18 14:48 - Medications Medications: Current Medications Clopidogrel Bisulfate (Plavix) 75 mg PO DAILY [facility] Last Admin: 10/27/18 09:14 Dose: 75 mg Heparin Sodium (Porcine) (Heparin) 4,600 units IVP TTS [facility] Stop: 11/01/18 23:59 Last Admin: 10/26/18 20:23 Dose: 4,600 units Levothyroxine Sodium (Synthroid) 125 mcg PO 0600 [facility] Last Admin: 10/28/18 05:20 Dose: 125 mcg Meclizine HCl (Antivert) 12.5 mg PO Q8 PRN PRN Reason: Dizziness Last Admin: 10/27/18 11:38 Dose: 12.5 mg Metoprolol Tartrate (Lopressor) 25 mg PO BID [facility] Last Admin: 10/27/18 18:10 Dose: Not Given Rosuvastatin Calcium (Crestor) 10 mg PO HS [facility] Last Admin: 10/27/18 22:06 Dose: 10 mg Sevelamer Carbonate (Renvela) 800 mg PO TIDCC [facility] Last Admin: 10/27/18 18:09 Dose: 800 mg Vitamin B Complex/Vit C/Folic Acid (Nephro-Ofelia) 1 tab PO 0800 [facility] Last Admin: 10/27/18 09:10 Dose: 1 tab Results - Vital Signs Recent Vital Signs: Last Vital Signs Temp 98.2 F 10/27/18 23:59 Pulse 60 10/28/18 03:54 Resp 18 10/27/18 23:59 BP 129/79 10/28/18 03:54 Pulse Ox 96 10/27/18 23:59 - Labs Result Diagrams: 10/27/18 08:17 10/27/18 08:17 Labs: Laboratory Results - last 24 hr 10/27/18 10/27/18 10/27/18 08:17 08:17 08:55 WBC 7.3 RBC 3.19 L Hgb 10.5 L Hct 30.6 L MCV 95.8 MCH 32.8 H MCHC 34.3 RDW 16.1 H Plt Count 232 MPV 8.9 Neut % (Auto) 57.5 Lymph % (Auto) 33.9 [place] % (Auto) 6.2 Eos % (Auto) 2.1 Baso % (Auto) 0.3 Neut # (Auto) 4.2 Lymph # (Auto) 2.5 [place] # (Auto) 0.5 Eos # (Auto) 0.2 Baso # (Auto) 0.0 Sodium 137 Potassium 4.4 Chloride 97 L Carbon Dioxide 29 Anion Gap 15 BUN 41 H Creatinine 6.1 H Est GFR ( Amer) 8 Est GFR (Non-Af Amer) 7 POC Glucose (mg/dL) 149 H Random Glucose 107 H Calcium 8.5 L Total Bilirubin 0.7 AST 27 ALT 16 Alkaline Phosphatase 129 H Total Protein 7.6 Albumin 4.3 Globulin 3.3 Albumin/Globulin Ratio 1.3 10/27/18 10/27/18 10/27/18 11:12 16:22 16:56 WBC RBC Hgb Hct MCV MCH MCHC RDW Plt Count MPV Neut % (Auto) Lymph % (Auto) [place] % (Auto) Eos % (Auto) Baso % (Auto) Neut # (Auto) Lymph # (Auto) [place] # (Auto) Eos # (Auto) Baso # (Auto) Sodium Potassium Chloride Carbon Dioxide Anion Gap BUN Creatinine Est GFR ( Amer) Est GFR (Non-Af Amer) POC Glucose (mg/dL) 150 H 106 99 Random Glucose Calcium Total Bilirubin AST ALT Alkaline Phosphatase Total Protein Albumin Globulin Albumin/Globulin Ratio 10/27/18 10/28/18 21:20 06:43 WBC RBC Hgb Hct MCV MCH MCHC RDW Plt Count MPV Neut % (Auto) Lymph % (Auto) [place] % (Auto) Eos % (Auto) Baso % (Auto) Neut # (Auto) Lymph # (Auto) [place] # (Auto) Eos # (Auto) Baso # (Auto) Sodium Potassium Chloride Carbon Dioxide Anion Gap BUN Creatinine Est GFR ( Amer) Est GFR (Non-Af Amer) POC Glucose (mg/dL) 199 H 118 H Random Glucose Calcium Total Bilirubin AST ALT Alkaline Phosphatase Total Protein Albumin Globulin Albumin/Globulin Ratio
[2018-10-28 07:47] LABS: BASO % 0.5 % (0.0-2.0); EOS # 0.2 K/uL (0.0-0.7); EOS % 2.4 % (0.0-4.0); HEMOGLOBIN 10.3 g/dL (11.0-16.0); LYMPH # 2.7 K/uL (1.0-4.3); LYMPH % 35.2 % (20.0-40.0); MEAN CELL VOLUME 96.3 fL (81.0-99.0); MEAN CORPUSCULAR HGB CONC 34.3 g/dL (33.0-37.0); MEAN PLATELET VOLUME 8.9 fL (7.2-11.7); MONO # 0.5 K/uL (0.0-0.8); MONO % 5.9 % (0.0-10.0); NEUT # 4.3 K/uL (1.8-7.0); RBC 3.13 Mil/uL (3.80-5.20); RED CELL DISTRIBUTION WIDTH 15.9 % (11.5-14.5); WHITE BLOOD COUNT 7.7 K/uL (4.8-10.8)
[2018-10-28 07:59] VITALS: RESP 20; O2SAT 100
[2018-10-28 08:10] LABS: ALB/GLOB RATIO 1.3 (1.0-2.1); ALBUMIN 4.2 g/dL (3.5-5.0); CALCIUM 8.4 mg/dl (8.6-10.4)
[2018-10-28] MEDS: Multivitamin Vitamin B Complex (Nephro-Vite) Tab PO SCH (08:25)
--- NOTE | 2018-10-28 09:28 | PN ---
DATE: 10/26/2018 FOLLOWUP RENAL CONSULTATION LOCATION: The patient is located in room 562, bed A. REQUESTED BY: Daxa Styles MD REASON FOR FOLLOWUP: End-stage renal disease, continuation of hemodialysis. SUBJECTIVE: Mrs. Shadi Peña is a 73-year-old elderly obese female with a past medical history significant for longstanding hypertension, diabetes, hyperlipidemia, coronary artery disease, status post coronary stent placement about a year ago, multiple surgeries to the right knee joint, status post total knee replacement x2 and spacer placement and knee cap reconstructive surgery and multiple rods in the leg also, end-stage renal disease, on hemodialysis since 09/2017 who was admitted with chief complaints of dizziness, nausea, vomiting and passed out as per the patient's family. The patient has a history of occasional dizziness. Denies any chest pain or palpitation. Denies any fever or cough. Denies any abdominal pain. Denies any nausea or vomiting today. Denies any swelling of the legs. PHYSICAL EXAMINATION: VITAL SIGNS: As follows: Blood pressure 168/89, pulse 69, respirations about 18, temperature 97.4, saturation 100%. Height 5 feet 5 inches. Weight is 202 pounds. GENERAL: Mrs. Shadi Peña is a 73-year-old elderly female, well built, well nourished, not in distress. HEENT: Pupils normal and reactive to light and accommodation. Conjunctivae pink. Sclerae anicteric. Tongue is moist. Trachea is midline. LUNGS: Symmetric on both sides. Bilateral breath sounds present. Clear to auscultation. CARDIOVASCULAR SYSTEM: [place] at the fifth intercostal space, midclavicular line. S1 and S2 audible. No murmur or gallop. ABDOMEN: Normal in appearance, soft, tympanitic. No guarding. No rigidity. No hepatosplenomegaly. CENTRAL NERVOUS SYSTEM: The patient is alert, awake and oriented x3. Nonfocal neuro examination. Cranial nerves II through XII grossly intact. Sensory and motor system is within normal limits. EXTREMITIES: No cyanosis, no clubbing, no edema. CURRENT MEDICATIONS: Include as follows: Crestor 10 mg at bedtime and subcu heparin 4600 units in the Perm-A-Cath in both ports, metoprolol 25 mg p.o. b.i.d., Plavix 75 mg daily, Synthroid 125 mcg p.o. daily. LABORATORY DATA: Include as follows as of 10/26/2018: WBC 6.4, hemoglobin 9.9, hematocrit is 29.7 and platelets are 227. Sodium 138, potassium 4.5, chloride 98, CO2 of 27, BUN 59, creatinine 7.9, glucose 104, and calcium 8.3. Total bili 0.6, AST 21, ALT 70, alkaline phos of 119, total protein 7.1, albumin is 4. Other laboratory data: Carotid Doppler studies pending report. Duplex scan of the both lower extremities: No evidence of DVT in both lower extremities. CT of the chest as of 10/24/2018: Small hiatal hernia, incidental 6 mm perifissural nodule along followup on noncontrast CT in 6-12 months ago, but no other acute abnormality. CT of the head as of 10/24/2018: No acute intracranial pathology identified. The echocardiogram as of 10/24/2018, impression: Left ventricular function is normal. Left ventricular ejection fraction is within normal range. No regional wall motion abnormality identified. Left atrium is mildly dilated. ASSESSMENT AND PLAN: In summary, Mrs. Shadi Peña is a 73-year-old elderly female with a history of longstanding hypertension, diabetes, hyperlipidemia, hypothyroidism, end-stage renal disease, on hemodialysis three times a week on Sunday, and Sunday who was admitted with nausea, vomiting, dizziness and passed out with a questionable history from the patient who does not want to take ultrafiltration more than 1.8 to 2 L. 1. End-stage renal disease. Continue hemodialysis three times a week on Sunday, and Sunday. 2. Hypertension. Blood pressure is uncontrolled. Continue her current medication of metoprolol and titrate as per the radio station audio engineer, Dr. Dorman. 3. Anemia secondary to renal failure. We will add Epogen once the blood pressure is under control. We will add Nephrocaps and Renvela. We will follow with you. Thank you for allowing me to participate in your patient's care. The patient underwent hemodialysis this evening and ultrafiltration about 2 L. Thank you for allowing me to participate in your patient's care. Farrah Styles MD Pedro # [id number] DEBRA
--- NOTE | 2018-10-28 10:43 | CP.PCM.PN ---
Subjective - Date & Time of Evaluation Date of Evaluation: 10/28/18 Time of Evaluation: 10:42 - Subjective Subjective: pt is seen and examined, follow up consult is dictated #[id number] Objective - Vital Signs/Intake and Output Vital Signs (last 24 hours): Temp Pulse Resp BP Pulse Ox 97.8 F 74 20 147/83 100 10/28/18 07:00 10/28/18 08:51 10/28/18 07:00 10/28/18 07:00 10/28/18 07:00 Intake and Output: 10/28/18 10/28/18 06:59 18:59 Intake Total 250 Balance 250 - Medications Medications: Current Medications Clopidogrel Bisulfate (Plavix) 75 mg PO DAILY [facility] Last Admin: 10/28/18 10:19 Dose: 75 mg Heparin Sodium (Porcine) (Heparin) 4,600 units IVP TTS [facility] Stop: 11/01/18 23:59 Last Admin: 10/26/18 20:23 Dose: 4,600 units Levothyroxine Sodium (Synthroid) 125 mcg PO 0600 [facility] Last Admin: 10/28/18 05:20 Dose: 125 mcg Meclizine HCl (Antivert) 12.5 mg PO Q8 PRN PRN Reason: Dizziness Last Admin: 10/27/18 11:38 Dose: 12.5 mg Metoprolol Tartrate (Lopressor) 25 mg PO BID [facility] Last Admin: 10/28/18 10:21 Dose: Not Given Morphine Sulfate (Morphine) 2 mg IVP STAT [facility] Stop: 10/28/18 10:29 Rosuvastatin Calcium (Crestor) 10 mg PO HS [facility] Last Admin: 10/27/18 22:06 Dose: 10 mg Sevelamer Carbonate (Renvela) 800 mg PO TIDCC [facility] Last Admin: 10/28/18 08:25 Dose: 800 mg Vitamin B Complex/Vit C/Folic Acid (Nephro-Ofelia) 1 tab PO 0800 [facility] Last Admin: 10/28/18 08:25 Dose: 1 tab - Labs Labs: 10/28/18 07:36 10/28/18 07:36
--- NOTE | 2018-10-28 10:43 | MRI ---
Date of service: 10/28/2018 PROCEDURE: MRI BRAIN WITHOUT CONTRAST HISTORY: [employer] ISCHEMIC PROCESS COMPARISON: None available. TECHNIQUE: Multiplanar, multisequence MR images of the brain were obtained without intravenous contrast enhancement. FINDINGS: HEMORRHAGE: None DWI: No evidence of an acute or early subacute infarction, including either post cerebral artery distribution. BRAIN PARENCHYMA: Good corticomedullary differentiation is seen. Proportional, diffuse expansion of the ventriculosulcal and cisternal spaces is appreciated with white matter signal changes compatible with diffuse cerebral atrophy and chronic microangiopathy. No suspicious extra-axial fluid collection is identified and the midline brain anatomy appears grossly nonfocal as imaged. There is no mass effect throughout. VENTRICLES: Unremarkable. No hydrocephalus. CRANIUM: Unremarkable. ORBITS: Grossly unremarkable. PARANASAL SINUSES/MASTOIDS: Extensive bilateral mastoid effusions identified VASCULAR SYSTEM: Skull base flow voids intact. OTHER FINDINGS: None. IMPRESSION: Stable intracranial brain imaging in general. Age-related neuro degenerative changes are reiterated with no definite evidence of acute subacute ischemic process involving either posterior cerebral artery distribution bilaterally. Incidental bilateral mastoid effusions again evident.
--- NOTE | 2018-10-28 11:20 | CP.PCM.PN ---
Subjective - Date & Time of Evaluation Date of Evaluation: 10/28/18 Time of Evaluation: 11:20 - Subjective Subjective: Discharge summary dictated #[id number] Objective - Vital Signs/Intake and Output Vital Signs (last 24 hours): Temp Pulse Resp BP Pulse Ox 97.8 F 74 20 147/83 100 10/28/18 07:00 10/28/18 08:51 10/28/18 07:00 10/28/18 07:00 10/28/18 07:00 Intake and Output: 10/28/18 10/28/18 06:59 18:59 Intake Total 250 Balance 250 - Medications Medications: Current Medications Clopidogrel Bisulfate (Plavix) 75 mg PO DAILY [facility] Last Admin: 10/28/18 10:19 Dose: 75 mg Heparin Sodium (Porcine) (Heparin) 4,600 units IVP TTS [facility] Stop: 11/01/18 23:59 Last Admin: 10/26/18 20:23 Dose: 4,600 units Levothyroxine Sodium (Synthroid) 125 mcg PO 0600 [facility] Last Admin: 10/28/18 05:20 Dose: 125 mcg Meclizine HCl (Antivert) 12.5 mg PO Q8 PRN PRN Reason: Dizziness Last Admin: 10/27/18 11:38 Dose: 12.5 mg Metoprolol Tartrate (Lopressor) 25 mg PO BID [facility] Last Admin: 10/28/18 10:21 Dose: Not Given Morphine Sulfate (Morphine) 2 mg IVP STAT [facility] Stop: 10/28/18 10:29 Rosuvastatin Calcium (Crestor) 10 mg PO HS [facility] Last Admin: 10/27/18 22:06 Dose: 10 mg Sevelamer Carbonate (Renvela) 800 mg PO TIDCC [facility] Last Admin: 10/28/18 08:25 Dose: 800 mg Vitamin B Complex/Vit C/Folic Acid (Nephro-Ofelia) 1 tab PO 0800 [facility] Last Admin: 10/28/18 08:25 Dose: 1 tab - Labs Labs: 10/28/18 07:36 10/28/18 07:36
--- NOTE | 2018-10-28 13:36 | VASCLAB ---
Date of service: 10/26/2018 PROCEDURE: Carotid Duplex Exam. HISTORY: Syncope, ESRD, On Dialysis COMPARISON: None available. TECHNIQUE: Grayscale and duplex Doppler evaluation of the cervical carotid and vertebral arteries were performed. The common carotid, carotid bifurcations and cervical Internal Carotid Artery (ICA) and proximal External Carotid Artery (ECA) were evaluated. The vertebral arteries were evaluated for gross patency and flow direction. Report prepared by Florian Blanco, T FINDINGS: RIGHT CAROTID ARTERIES: 1. Common Carotid Artery: No significant focal plaque formation of the right common carotid artery. Maximum Peak Systolic velocity: 88.6 cm/sec: End-diastolic velocity 19.4 cm/sec. 2. Carotid Bifurcation: No significant focal plaque formation. Maximum Peak Systolic velocity: 42.9 cm/sec: End-diastolic velocity 10.3 cm/sec. 3. Internal Carotid Artery: Plaque description: Heterogeneous 3.1. Proximal Segment: Peak systolic velocity 48.7 cm/sec: End-diastolic velocity 18.7 cm/sec - % stenosis 0-15% 3.2. Middle Segment: Peak systolic velocity 83.6 cm/sec: End-diastolic velocity 23.1 cm/sec - % stenosis 3.3. Distal Segment: Peak systolic velocity 62.7 cm/sec: End-diastolic velocity 26.6 cm/sec - % stenosis 4. External Carotid Artery: No significant focal plaque formation. Peak systolic velocity 50.7 cm/sec 5. ICA/CCA Ratio: 1.0 LEFT CAROTID ARTERIES: 1. Common Carotid Artery: No significant focal plaque formation of the left common carotid artery. Maximum Peak Systolic velocity: 64.4 cm/sec: End-diastolic velocity 16.0 cm/sec. 2. Carotid Bifurcation: Heterogeneous plaque formation. Maximum Peak Systolic velocity: 60.8 cm/sec: End-diastolic velocity 13.6 cm/sec. 3. Internal Carotid Artery: Plaque description: Heterogeneous 3.1. Proximal Segment: Peak systolic velocity 61.4 cm/sec: End-diastolic velocity 22.5 cm/sec - % stenosis 0-15% 3.2. Middle Segment: Peak systolic velocity 65.6 cm/sec: End-diastolic velocity 20.1 cm/sec - % stenosis 3.3. Distal Segment: Peak systolic velocity 78.7 cm/sec: End-diastolic velocity 27.7 cm/sec - % stenosis 4. External Carotid Artery: No significant focal plaque formation. Peak systolic velocity 67.7 cm/sec 5. ICA/CCA Ratio: 1.2 VERTEBRAL ARTERIES: 1. Right Vertebral Artery: The right vertebral artery flow direction is antegrade. 2. Left Vertebral Artery: The left vertebral artery flow direction is antegrade. OTHER FINDINGS: 1. Right Brachial Blood pressure: mmHg. 2. Left Brachial Blood pressure: mmHg. IMPRESSION: RIGHT: Duplex scan does suggest 0-15% Non-hemodynamically stenosis of the right internal carotid artery. LEFT: Duplex scan does suggest 0-15% Non-hemodynamically stenosis of the left internal carotid artery. .
--- NOTE | 2018-10-28 14:31 | CON ---
DATE: 10/28/2018 ATTENDING PHYSICIAN: Daxa Styles MD REASON FOR CONSULTATION: Near syncopal attack. CHIEF COMPLAINT: The patient was brought into [facility] with history of syncopal attack. From neurologic point of view, I was called into evaluate her for further management. HISTORY OF PRESENT ILLNESS: Ms. Lakeisha Peña is 73-year-old right-handed female who was brought in [facility] with a history of near-syncopal attack in her house following way she was transferred to the ambulance. She could not recall how she came to the hospital. No history of witnessed tonic-clonic activities. No history of fall. No history of head injury. No history of involuntary movements during the whole process. Similar episodes happened in the past, been told kidney related problem. PAST MEDICAL HISTORY: End-stage renal disease, on dialysis. Coronary artery disease, dyslipidemia, hypertension, longstanding diabetes mellitus, status post right knee surgery x4 with the placement of the metal. The above things were not associating with double vision, visual or bulbar dysfunction. No focal weakness. ALLERGIES: ALLERGIES TO TYLENOL, MORPHINE, OXYCODONE. REVIEW OF SYSTEMS 12-point system being reviewed. From neuro, recurrent dizziness and syncopal attack. PHYSICAL EXAMINATION: VITAL SIGNS: Blood pressure 129/79, mean artery pressure of 95, respiratory rate 18, pulse rate 60 and regular, temperature 98.2. NECK: Supple. No carotid bruits. HEART: Heart sounds regular. CHEST: Fair air entry. EXTREMITIES: Mild edema in legs. NEUROLOGIC EXAMINATION: Mental status examination, she is awake, alert and or to person, place and time. Speech is clear. Naming, repetition, fluency, comprehension all within normal. Some retrograde amnesia from this episode. No antegrade amnesia. No hallucination. No suicidal ideation. No depression. Cranial nerve examination, visual field intact. Pupils reactive to it. Extraocular movement normal. No nystagmus. No facial sensory deficit. No facial asymmetry. Hearing is normal. Tongue is midline. Good gag. Motor examination, outstretched hand with eyes closed, no drift noted. Power is symmetric on either side. Deep tendon reflexes biceps, brachialis, triceps are absent. Plantars are downgoing. Coordination: Finger-nose test is intact. No asterixis. She is ambulating with using the has a support. CONCLUSION: 1. Ms. Lakeisha Peña as per neurological examination presenting with possible hypoperfusion syndrome. However, retrograde amnesia which is not explained completely, even she is in recumbent position. From neurological point of view, nonconvulsive seizures should be ruled out. 2. The patient also suffering from significant bilateral distal symmetric sensorimotor neuropathy superimposed with lumbosacral disk disease. 3. End-stage renal disease with other metabolic syndrome. Workup: 1. CT of the head reviewed, no acute pathology is noted. 2. Carotid Doppler study is pending. EKG normal sinus rhythm. Blood workup, WBC 7.3, hemoglobin 10.5, hematocrit 30.6, platelet 232. Sodium 137, potassium 4.4, chloride 97, bicarbonate of 29, BUN 41, creatinine 61, glucose 118, calcium 8.5. RECOMMENDATIONS: 1. Since the patient has a plate in the right knee, I would want to do any further radiological studies. 2. Waiting for the carotid Doppler results. 3. Electroencephalogram to rule out any paroxysmal activities. Continue the dialysis and control her diabetes as well as the blood pressure stabilization to keep the mean artery pressure around 100. DVT prophylaxis should be continued and physical therapy should be initiated as early as possible to improve her gait. The patient will be followed closely with you. Leroy Garcia MD
[2018-10-28 17:04] VITALS: BP 168/88; PULSE 64; TEMP 98.2
--- NOTE | 2018-10-29 03:43 | PN ---
DATE: 10/28/2018 FOLLOWUP RENAL CONSULTATION LOCATION: The patient is located in room 562, bed A. REQUESTED BY: Daxa Styles MD REASON FOR FOLLOWUP: Hypertension, syncopal episode, end-stage renal disease, for continuation of the hemodialysis. HISTORY OF PRESENT ILLNESS: Mrs. Shadi Peña is a 73-year-old elderly female, obese with a past medical history significant for longstanding hypertension, diabetes, hyperlipidemia, hypothyroidism, end-stage renal disease, coronary artery disease, status post stent placement more than a year ago, who was admitted with nausea, vomiting, and syncopal episode, and initial renal consult was requested for continuation of the hemodialysis and for uncontrolled hypertension. The patient is not in acute distress, feeling better this morning. No chest pain. No palpitation. No fever. No cough. No abdominal pain. No nausea, vomiting, or diarrhea. PHYSICAL EXAMINATION: VITAL SIGNS: This morning, blood pressure 147/83, pulse 66, respirations 20, temperature 97.8, and saturation 100%. Height 5 feet 5 inches and weight is 202 pounds. GENERAL: Mrs. Shadi Peña is a 73-year-old elderly obese female, moderately built, moderately nourished, not in acute distress. HEENT: Pupils normal, reactive to light and accommodation. Conjunctivae pink. Sclerae anicteric. Tongue is moist, and trachea is midline. LUNGS: Symmetric on both sides. Bilateral breath sounds present. Clear to auscultation. CARDIOVASCULAR SYSTEM: [place] at the fifth intercostal space and midclavicular line. S1, S2 audible. No murmur or gallop. ABDOMEN: Normal in appearance. Soft, tympanitic. No guarding. No rigidity. No hepatosplenomegaly. CENTRAL NERVOUS SYSTEM: The patient is alert, awake, and oriented x3. Nonfocal neuro examination. Cranial nerves II through XII grossly intact. Sensory and motor system is within normal limits. EXTREMITIES: No cyanosis, no clubbing, no edema. CURRENT MEDICATIONS: This morning include as follows: Plavix 75 mg daily, heparin intracatheter 2300 units three times a week, levothyroxine 125 mcg p.o. daily, meclizine 12.5 mg p.o. every 8 hours, metoprolol 25 mg p.o. b.i.d., morphine 2 mg IV x1 dose, Crestor 10 mg at bedtime, Renvela 800 mg p.o. t.i.d., and Nephro-Ofelia one tablet p.o. daily. LABORATORY DATA: As of 10/28/2018, WBC 7.7, hemoglobin 10.3, hematocrit is 30.1, platelets 224. Sodium 134, potassium 4.8, chloride 95, CO2 of 28, BUN 56, creatinine 7.7, glucose 118, calcium 8.4. Total bili 0.8, AST 24, ALT 14, alkaline phos is 123, total protein 7.4, albumin is 4.2. Blood culture x2 negative as of 10/24/2018 day 4, and MRI of the brain as of 10/28/2018, stable intracranial brain imaging. In general, age-related neuro degenerative changes are reiterated with no definite evidence of subacute ischemic process involving the posterior cerebral artery distribution bilaterally. Incidental bilateral mastoid effusion again evident. Carotid Doppler study, impression; right duplex scan does suggest 0-15% non-hemodynamic significant stenosis of the right internal carotid artery, left duplex scan does suggest 0-15% non-hemodynamic stenosis of the left internal carotid artery. ASSESSMENT AND PLAN: In summary, Mrs. Shadi Peña is about 73-year-old elderly obese female with a past medical history significant for hypertension, diabetes, hyperlipidemia, hypothyroidism, coronary artery disease, status post coronary artery bypass grafting, end-stage renal disease, on hemodialysis since 09/2017, status post stent placement in 09/2017, was admitted with nausea, vomiting, syncopal episode, and dizziness. 1. End-stage renal disease. Continue hemodialysis; Sunday, , and Sunday. 2. Hypertension. Continue metoprolol 25 mg p.o. b.i.d. and titrate as needed. 3. Hypothyroidism. Continue Synthroid 125 mcg p.o. daily. Continue Plavix and also Crestor, Renvela, and Nephro-Ofelia. The patient can go back to her regular unit once discharged from the [facility]. The patient agreed for the plan. Thank you for allowing me to participate in your patient's care and discharge home if cleared by Neurology today. Farrah Styles MD [facility] # [id number]
--- NOTE | 2018-10-31 17:44 | DS ---
DISCHARGE DIAGNOSES: Dizziness, possible vertigo, chest pain, status post syncope, generalized weakness, hypertension, hyperlipidemia, hypothyroidism, coronary artery disease, status post stent placement, end-stage renal disease, on hemodialysis. HISTORY OF PRESENT ILLNESS: Ms. Shadi Peña is a 73-year-old female with past medical history of hypertension, diabetes mellitus, hyperlipidemia, CAD, status post stent placement, ESRD, on hemodialysis, came into the emergency room after the patient felt very weak, dizzy and had a syncopal episode while she was getting ready to go to the dialysis. She could not recall what happened after she got into the ambulance until she came into the emergency room and the patient was admitted for further evaluation. On the day of discharge, the patient was feeling much better. REVIEW OF SYSTEMS: Denied any headache, dizziness. Denied any chest pain, short of breath or wheezing. Denied any nausea, vomiting, abdominal pain, diarrhea or constipation. Denied any urinary complaints. Denied any leg pains or leg cramps, but complaining of low back pain which has been there chronically. Her dizziness improved with meclizine. Denies any new neurological symptoms. All other systems reviewed and were found to be negative. PHYSICAL EXAMINATION: GENERAL: Elderly female, lying in bed, in no acute distress. VITAL SIGNS: Blood pressure 168/88, pulse 64, respirations 20, temperature 98.2 degrees Fahrenheit, O2 sats 100% on room air. HEENT: Pupils equal, round, and reacting to light and accommodation. Extraocular muscles intact. No icterus. No pallor. No oral thrush. No pharyngeal congestion. NECK: Supple. No JVD. LUNGS: Bilateral vesicular breath sounds. No wheezing. No rhonchi. CARDIOVASCULAR SYSTEM: S1 and S2 present. Regular. ABDOMEN: Soft. Nontender. Bowel sounds present. No guarding. No rigidity. No rebound tenderness noted. CENTRAL NERVOUS SYSTEM: Alert, awake, and oriented x3. No focal deficits noted. EXTREMITIES: No edema. Palpable peripheral pulses. LABORATORY DATA: Labs from 10/28/2018, WBC 7.7, hemoglobin 10.3, hematocrit 30.1, platelets 224. Sodium 134, potassium 4.8, chloride 95, bicarb 28, BUN 56, creatinine 7.7, glucose 118, calcium 8.4. Other LFTs within normal limits. Troponins are negative. HOSPITAL COURSE: The patient was admitted to the hospital for syncope, dizziness. The patient was evaluated by Cardiology. Three sets of cardiac enzymes negative. Her echocardiogram is normal EF without any abnormality. The patient was evaluated by Cardiology, recommended stress test as an outpatient and possible tilt table test after neurologic workup. The patient was also evaluated by Neurology, underwent MRI of the brain which was negative for any abnormality. Carotid Doppler was negative. Lower extremity Dopplers were negative. Neurology recommending EEG also as outpatient. As the patient is otherwise hemodynamically stable and cleared by the consultants. The patient was also seen by Renal for her continuation of hemodialysis while in the hospital. I advised the patient to follow up in outpatient hemodialysis center on Sunday morning for continuation of hemodialysis. I advised the patient to return to the ED if any worsening of her symptoms. CONDITION UPON DISCHARGE: The patient is alert, awake, and oriented x3 and hemodynamically stable at the time of discharge. DISCHARGE INSTRUCTIONS: Follow up with PMD. Follow up with Neurology. Follow up with Cardiology. Continue with hemodialysis and follow up with Renal. Advised to continue with her home medications, and meclizine prescription was given to be taken as needed and Synthroid 125 mcg daily, Renvela, Plavix 75 mg daily, metoprolol 25 mg p.o. b.i.d., Crestor 10 mg p.o. at bedtime. DISCHARGE DIET: Heart-healthy renal diet. ACTIVITIES: As tolerated. Daxa Styles MD
--- NOTE | 2018-11-05 11:11 | PQF ---
PROVIDER RESPONSE TEXT: There is no pneumonia. Etiology of syncope unknown, may be vaso vagal or vertigo. REVIEWER QUERY TEXT: Clinical Validity Additional clinical indicators are required to support documented diagnosis of PNEUMONIA Please respond and also state in your next progress note whether: -- Condition exists and also please provide clinical indicators to support the diagnosis -- Condition does not exist and also please provide amended documentation in the medical record to cl gonzalo -- Unable to provide additional clarity regarding the diagnosis -- Other, please specify The patient's Clinical Indicators include: PLEASE, CLARIFY (IF KNOWN) THE ETIOLOGY OF SYNCOPE, DIZZINESS WHICH BROUGHT PATIENT TO THE HOSPIT AL. ALSO PNEUMONIA WAS DOCUMENTED ON EMERGENCY DEPT RECORDS PLEASE, CLARIFY IS PNEUMONIA WAS RULED IN OR RULED OUT Query created by: Liss Damon on 11/01/2018 8:10 AM Electronically signed by: Daxa Styles MD 11/05/2018 11:08 AM
== END 2018-10-28 18:42 | disposition home or self-care (01) | DRG 312 ==
LOC: C.ER 11:02 → C.9E 13:18 → C.5S 16:56
PROVIDERS: ADMIT Internal Medicine; ATTEND Internal Medicine
PROC: 5A1D70Z Performance of Urinary Filtration, Intermittent, Less than 6 Hours Per Day (ICD-10-PCS; principal; 2018-10-24)
PROC: 5A1D70Z Performance of Urinary Filtration, Intermittent, Less than 6 Hours Per Day (ICD-10-PCS; 2018-10-24)
DX: R55 Syncope and collapse (principal); N18.6 End stage renal disease; I13.2 Hypertensive heart and chronic kidney disease with heart failure and with stage 5 chronic kidney disease, or end stage renal disease; N25.81 Secondary hyperparathyroidism of renal origin; E88.81 Metabolic syndrome and other insulin resistance; E11.22 Type 2 diabetes mellitus with diabetic chronic kidney disease; I50.9 Heart failure, unspecified; I25.10 Atherosclerotic heart disease of native coronary artery without angina pectoris; E11.69 Type 2 diabetes mellitus with other specified complication; E89.0 Postprocedural hypothyroidism; G89.29 Other chronic pain; D63.1 Anemia in chronic kidney disease; E11.42 Type 2 diabetes mellitus with diabetic polyneuropathy; E83.39 Other disorders of phosphorus metabolism; M51.9 Unspecified thoracic, thoracolumbar and lumbosacral intervertebral disc disorder; K21.9 Gastro-esophageal reflux disease without esophagitis; R41.2 Retrograde amnesia; M79.604 Pain in right leg; E66.9 Obesity, unspecified; E78.5 Hyperlipidemia, unspecified; E78.00 Pure hypercholesterolemia, unspecified; Z96.651 Presence of right artificial knee joint; Z99.2 Dependence on renal dialysis; Z79.4 Long term (current) use of insulin; Z79.02 Long term (current) use of antithrombotics/antiplatelets; Z95.1 Presence of aortocoronary bypass graft; Z95.5 Presence of coronary angioplasty implant and graft; Z82.49 Family history of ischemic heart disease and other diseases of the circulatory system

== ENCOUNTER 2018-12-12 17:33 | Emergency (ER) | payer MEDICARE, MEDICAID ==
[2018-12-12 17:57] VITALS: BMI 30.9
[2018-12-12 19:50] VITALS: O2SAT 100
[2018-12-12] MEDS ORDERED: DiphenhydrAMINE 50 mg/ml Inj IVP STA (21:18)
[2018-12-12] MEDS ORDERED: DiphenhydrAMINE 50 mg/ml Inj ONE (21:27)
--- NOTE | 2018-12-12 21:32 | C.PDOC ---
History Of Present Illness 73 y/o female with a PMHx of HTN, CHF, ESRD (on dialysis) presents complaining of itching to her arms back and chest for the last week. Patient has been treated for pustules and allergic reaction to tape at her HD site in right upper chest for the past 2 months. She has been on Pepcid, Benadryl, and Medrol dose pack up until 1 week ago upon completing the Medrol. Patient was feeling better but then developed worsening pruritus to her back and arms this week. She has been taking Benadryl at night for symptoms, which helps transiently. However patient takes nothing during the day. She now presents requesting IV medication and testing to find out source of the itching. Patient is being treated by her dialysis doctor, states the pruritus worsens during dialysis, and she has been given Benadryl during dialysis before. Otherwise patient denies exposure to new soaps, foods, medications, or lotions. Time Seen by Provider: 12/12/18 21:11 Chief Complaint (Nursing): Abnormal Skin Integrity History Per: Patient History/Exam Limitations: no limitations Onset/Duration Of Symptoms: Days Current Symptoms Are (Timing): Still Present Quality Of Symptoms: Itching Past Medical History Reviewed: Historical Data, Nursing Documentation, Vital Signs Vital Signs: Last Vital Signs Temp 98 F 12/12/18 17:57 Pulse 66 12/12/18 19:49 Resp 18 12/12/18 17:57 BP 154/78 H 12/12/18 19:49 Pulse Ox 100 12/12/18 19:49 - Medical History PMH: Anemia (iron deficiency), CHF, Diabetes, Hiatal Hernia, HTN, Hyperchol esterolemia, Peripheral Edema, End Stage Renal Disease, Chronic Kidney Disease, Chronic Pain (R leg) Comment Only: Hypothyroidism (thyroid surgery partial thyroidectomy) Other Surgeries: Multiple knee surgeries - [facility] (10/24/18) DILATION OF 1 COR ART WITH DRUG-ELUT INTRA, PERC APPROACH (09/17/17) FLUOROSCOPY OF LEFT HEART USING OTHER CONTRAST (09/17/17) FLUOROSCOPY OF MULTIPLE CORONARY ARTERIES USING OTH CONTRAST (09/17/17) INJECT/INFUSE NEC (09/05/05) INSERTION OF INFUSION DEVICE INTO R ATRIUM, PERC APPROACH (09/17/17) INSERTION OF VAD INTO CHEST SUBCU/FASCIA, PERC APPROACH (09/17/17) MEASURE OF CARDIAC SAMPL & PRESSURE, L HEART, PERC APPROACH (09/17/17) Family History: States: Unknown Family Hx - Social History Hx Tobacco Use: No Hx Alcohol Use: No Hx Substance Use: No - Immunization History Hx Tetanus Toxoid Vaccination: Yes Hx Influenza Vaccination: Yes Hx Pneumococcal Vaccination: Yes Review Of Systems Constitutional: Negative for: Fever, Chills Cardiovascular: Negative for: Chest Pain Respiratory: Negative for: Shortness of Breath Gastrointestinal: Negative for: Vomiting, Diarrhea Skin: Positive for: Other (itching to back, arms, and chest) Neurological: Negative for: Weakness, Dizziness Physical Exam - Physical Exam Appears: Non-toxic, No Acute Distress Skin: Dry, Other (Mild excoriations to her back and arms) Head: Atraumatic, Normacephalic Eye(s): bilateral: Normal Inspection, PERRL, EOMI Oral Mucosa: Moist Throat: Normal (Oropharynx is clear, airway patent), No Erythema, No Exudate Neck: Normal ROM Chest: Other (Right upper chest port, (+) surrounding dry tissue with healed vesicles, no active vesicles or pruritus) Cardiovascular: Rhythm Regular, No Murmur Respiratory: Normal Breath Sounds, No Accessory Muscle Use, No Rhonchi, No Wheezing Gastrointestinal/Abdominal: Soft, No Tenderness, No Distention Extremity: Bilateral: Atraumatic, Normal ROM Pulses: Left Dorsalis Pedis: Normal, Right Dorsalis Pedis: Normal Neurological/Psych: Oriented x3, Normal Speech ED Course And Treatment - Laboratory Results Result Diagrams: 12/12/18 21:44 12/12/18 21:44 O2 Sat by Pulse Oximetry: 100 (RA) Pulse Ox Interpretation: Normal Medical Decision Making Medical Decision Making: Plan: Labs, EKG, and CXR ordered and reviewed. Patient given 20 mg IV Pepcid and 50 mg IV Benadryl. Disposition Doctor Will See Patient In The: Office Counseled Patient/Family Regarding: Studies Performed, Diagnosis - Disposition Referrals: [facility] [Outside] [facility] [Outside] [facility] [Outside] Alex Artis MD [Staff Provider] - Disposition: HOME/ ROUTINE Disposition Time: 00:05 Condition: GOOD Additional Instructions: labs unremarkable Pepcid 20 mg every 12 hours- strong antihistamine Benadryl 25-50 mg every 6 hours as needed for skin itching Ask @ dialysis center if some exposure there is provoking your itchy skin Apply skin moisturing lotions. Instructions: Itchy Skin Forms: [facility] (Chadian) - Clinical Impression Clinical Impression: Skin pruritus - Scribe Statement The provider has reviewed the documentation as recorded by the Aljeandroibnicole Lock Provider Attestation: All medical record entries made by the Alejandroibe were at my direction and personally dictated by me. I have reviewed the chart and agree that the record accurately reflects my personal performance of the history, physical exam, medical decision making, and the department course for this patient. I have also personally directed, reviewed, and agree with the discharge instructions and disposition.
[2018-12-12 21:49] LABS: BASO % 0.3 % (0.0-2.0); EOS # 0.2 K/uL (0.0-0.7); EOS % 2.3 % (0.0-4.0); LYMPH # 1.8 K/uL (1.0-4.3); LYMPH % 19.3 % (20.0-40.0); MEAN CELL VOLUME 95.8 fL (81.0-99.0); MEAN CORPUSCULAR HEMOGLOBIN 31.8 pg (27.0-31.0); MEAN CORPUSCULAR HGB CONC 33.1 g/dL (33.0-37.0); MEAN PLATELET VOLUME 8.6 fL (7.2-11.7); MONO # 0.6 K/uL (0.0-0.8); MONO % 6.6 % (0.0-10.0); NEUT # 6.5 K/uL (1.8-7.0); NEUT % 71.5 % (50.0-75.0); RBC 3.99 Mil/uL (3.80-5.20); RED CELL DISTRIBUTION WIDTH 15.1 % (11.5-14.5); WHITE BLOOD COUNT 9.2 K/uL (4.8-10.8)
[2018-12-12 21:52] LABS: HEMOGLOBIN 12.7 g/dL (11.0-16.0)
[2018-12-12 22:01] LABS: ALB/GLOB RATIO 1.4 (1.0-2.1); ALBUMIN 4.3 g/dL (3.5-5.0); ALT/SGPT 14 U/L (9-52); AST/SGOT 21 U/L (14-36); BLOOD UREA NITROGEN 17 mg/dL (7-17); CALCIUM 8.7 mg/dl (8.6-10.4); GFR NON-AFRICAN AMERICAN 10
[2018-12-12 22:13] LABS: B-TYPE NATRIURETIC PEPTIDE 1020 pg/mL (0-900)
--- NOTE | 2018-12-12 22:58 | C.PDOC ---
Chief Complaint (Nursing): Abnormal Skin Integrity Past Medical History Vital Signs: Last Vital Signs Temp 98 F 12/12/18 17:57 Pulse 66 12/12/18 19:49 Resp 18 12/12/18 17:57 BP 154/78 H 12/12/18 19:49 Pulse Ox 100 12/12/18 19:49 - Medical History PMH: Anemia (iron deficiency), CHF, Diabetes, Hiatal Hernia, HTN, Hypercholesterolemia, Peripheral Edema, End Stage Renal Disease, Chronic Kidney Disease, Chronic Pain (R leg) Comment Only: Hypothyroidism (thyroid surgery partial thyroidectomy) - [facility] (10/24/18) DILATION OF 1 COR ART WITH DRUG-ELUT INTRA, PERC APPROACH (09/17/17) FLUOROSCOPY OF LEFT HEART USING OTHER CONTRAST (09/17/17) FLUOROSCOPY OF MULTIPLE CORONARY ARTERIES USING OTH CONTRAST (09/17/17) INJECT/INFUSE NEC (09/05/05) INSERTION OF INFUSION DEVICE INTO R ATRIUM, PERC APPROACH (09/17/17) INSERTION OF VAD INTO CHEST SUBCU/FASCIA, PERC APPROACH (09/17/17) MEASURE OF CARDIAC SAMPL & PRESSURE, L HEART, PERC APPROACH (09/17/17) Family History: States: Unknown Family Hx - Social History Hx Tobacco Use: No Hx Alcohol Use: No Hx Substance Use: No - Immunization History Hx Tetanus Toxoid Vaccination: Yes Hx Influenza Vaccination: Yes Hx Pneumococcal Vaccination: Yes ED Course And Treatment - Laboratory Results Lab Interpretation: Normal ECG: Interpreted By Me ECG Rhythm: Sinus Rhythm ECG Interpretation: Normal Rate From EC O2 Sat by Pulse Oximetry: 100 Pulse Ox Interpretation: Normal - Radiology CXR: Interpreted by Me CXR Interpretation: Yes: No Acute Disease Progress Note: pepcid, benadryl IV Reevaluation Time: 22:59 Reassessment Condition: Improved Medical Decision Making Medical Decision Making: poorly controlled HTN with poor insight into HTN meds asked to review and document w PMD skin pruritis x 2-8 weeks unclear story prior lesions of contact dermatitis beneath tape @ R upper chest HD cath is now resolved poor compliance with Benadryl @ home good effect with benadryl/pepcid in ED ? related to exposure @ HD as symptoms worse during HD f/u with Renal doc Disposition Doctor Will See Patient In The: Office Counseled Patient/Family Regarding: Studies Performed, Diagnosis - Disposition Disposition: HOME/ ROUTINE Disposition Time: 23:01 Condition: GOOD - Clinical Impression Clinical Impression: Skin pruritus
[2018-12-12 23:35] VITALS: BP 157/83; PULSE 88; RESP 16; TEMP 98.2
--- NOTE | 2018-12-13 09:00 | RAD ---
Date of service: 12/12/2018 PROCEDURE: CHEST RADIOGRAPH, 1 VIEW HISTORY: SOB COMPARISON: 10/24/2018. FINDINGS: Stable position of right dialysis catheter terminating at the cavoatrial junction LUNGS: The lungs are well inflated. There is mild pulmonary venous congestion. No focal consolidation. PLEURA: No pneumothorax or pleural effusion. CARDIOVASCULAR: Mild cardiomegaly. There are aortic atherosclerotic calcifications present. OSSEOUS STRUCTURES: Within normal limits for the patient's age. VISUALIZED UPPER ABDOMEN: Normal. OTHER FINDINGS: None. IMPRESSION: Mild cardiomegaly and pulmonary venous congestion. No acute findings.
--- NOTE | 2018-12-13 16:43 | CARD ---
APPROVED REPORT Date of service: 12/12/2018 EKG Measurement Heart [id number] <Conclusion> Normal sinus rhythm Possible Anterior infarct, age undetermined Abnormal ECG
== END 2018-12-12 23:35 | disposition home or self-care (01) ==
LOC: C.ER 17:33
DX: L29.9 Pruritus, unspecified (principal)
CPT/HCPCS: 71045; 80053; 82948; 83880; 84484; 85025; 93005; 96374; 96375; 99285; J1200